=== PATIENT | female | born 1965 | race Two or more races ===

== ENCOUNTER 2016-10-10 19:29 | Inpatient (IN) | payer SELFPAY ==
[2016-10-10 20:18] LABS: Venous Bicarbonate HCO3 18.1 mmol/L (24-28)
[2016-10-10 20:19] LABS: Hematocrit 37 % (35-47); Hemoglobin 12.3 g/dl (12.0-16.0); Mean Corpuscular HGB Conc 33 g/dl (31-36); Mean Corpuscular Hemoglobin 31 pg (27-31); Mean Corpuscular Volume 92 fL (80-97); Mean Platelet Volume 9 um3 (7.4-10.4); Red Blood Count 4.01 10^6/ul (4.0-5.4); Red Cell Distribution Width 13 % (10.5-15)
[2016-10-10 20:20] LABS: Add Diff/Slide Review? Slide Review Added; Comments Flag Yes
--- NOTE | 2016-10-10 20:24 | ED ---
Medical Screening - HPI Summary HPI Summary: The patient is a 50 year old female presenting to ED for complaint of chronic cough, chest tightness, and epigastric pain. Initial 04/29 sharp epigastric pain non-radiating now /. Admits to fever 102, chills, night sweats, weight loss 16 lbs in 1 month, productive yellow sputum, nausea, decreased appetite, foul smelling urine, constipation, and mid back pain. Had BM today with bloody stool 2-3 times this week. Denies past medical or surgical history. Denies family history. SH: Rare alcohol. Former smoker. No IVDU. - History of Current Complaint Chief Complaint: EDDiabeticProb Stated Complaint: HIGH BLOOD SUGAR/CHEST CONGESTION Time Seen by Provider: 10/10/16 19:53 PMH/Surg Hx/FS Hx/Imm Hx Infectious Disease History: No Infectious Disease History: Denies: Traveled Outside the [place] in Last 30 Days - Social History Alcohol Use: Rare Substance Use Type: Reports: None Smoking Status (MU): Former Smoker Review of Systems Positive: Fever, Chills, Fatigue, Skin Diaphoresis Eyes: Negative ENT: Negative Positive: Chest Pain - tightness Positive: Cough, Other - no hemoptysis. Negative: Shortness Of Breath Positive: Abdominal Pain, Nausea, Other - constipation. Negative: Vomiting, Diarrhea Positive: other - foul smelling urine. Negative: burning, dysuria, hematuria Positive: Arthralgia - right back pain Skin: Negative Neurological: Negative Psychological: Normal All Other Systems Reviewed And Are Negative: Yes Physical Exam Triage Information Reviewed: Yes Vital Signs On Initial Exam: Initial Vitals Temp Pulse Resp BP Pulse Ox 98.4 F 96 18 144/69 100 10/10/16 19:33 10/10/16 19:33 10/10/16 19:33 10/10/16 19:33 10/10/16 19:33 Vital Signs Reviewed: Yes Appearance: Positive: Well-Appearing, No Pain Distress, Well-Nourished Skin: Positive: Warm, Skin Color Reflects Adequate Perfusion, Dry. Negative: Diaphoretic, Pale Neck: Positive: Supple, Nontender, No Lymphadenopathy Respiratory/Lung Sounds: Positive: Clear to Auscultation, Breath Sounds Present , Other - dry cough without bronchospasm. Negative: Decreased Breath Sounds, Rales, Rhonchi, Wheezes Cardiovascular: Positive: Normal, RRR, S1, S2. Negative: Murmur, Rub, Tachycardia, Leg Edema Left, Leg Edema Right Abdomen Description: Positive: No Organomegaly, Soft, CVA Tenderness (R), Other : - moderate tenderness RUQ/RLQ; no rebound or guarding JUSTIN: no fistula or fissure, anal sphincter tone intact; hemorrhoid at 5 o'clock position; no gross blood. Negative: Nontender, CVA Tenderness (L), Distended, Guarding, Hepatomegaly, Peritoneal Signs, Splenomegaly Bowel Sounds: Positive: Present Musculoskeletal: Positive: Normal - AROM all extremities, Pain @ - reported pain right mid thoracic without midline tenderness. Negative: Edema Left, Edema Right Neurological: Positive: Normal, Facial Symmetry, Speech Normal Psychiatric: Positive: Normal AVPU Assessment: Alert Diagnostics - Vital Signs Vital Signs Temp Pulse Resp BP Pulse Ox 10/10/16 19:33 98.4 F 96 18 144/69 100 - Laboratory Result Diagrams: 10/10/16 20:00 10/10/16 22:40 Lab Statement: Any lab studies that have been ordered have been reviewed, and results considered in the medical decision making process. Course/Dx - Course Assessment/Plan: Patient presented for cough, chest tightness and epigastric pain. Afebrile without septic criteria. Right sided tenderness without acute abdomen. Labs significant for Na 125, Cl 92, CO2 21, glucose 472 indicative of mild DKA. Treated with NS 2L bolus, Lantus 10 U, and Regular Insulin 7 U. CXR without acute cardiopulmonary disease. 2307: Repeat BMP with NA 131, K 3.3, Cl 99, Glucose 262, AG 10. 0002: CT abdomen/pelvis demonstrates right pyelonephritis and uterine fibroid. Ordered Rocephin. Admission accepted by hospitalist, Dr. Collado. - Diagnoses Provider Diagnoses: Pyelonephritis, Diabetes mellitus, new onset, DKA (diabetic ketoacidosis), Uterine fibroid, Chronic cough - Physician Notifications Discussed Care Of Patient With: Heaven: accepted admission at 0002. Discharge - Discharge Plan Condition: Stable Disposition: ADMITTED TO [facility] Referrals: No Primary Care Phys,NOPCP [Primary Care Provider] -
[2016-10-10 20:33] LABS: Albumin 3.4 g/dL (3.2-5.2); BUN/Creatinine Ratio 16.9 (8-20); Calcium 9.1 mg/dL (8.6-10.3); EGFR African American 138.8 (>60); EGFR Non-African American 107.9 (>60); Globulin 4.5 g/dL (2-4); Potassium 3.5 mmol/L (3.5-5.0); Total Bilirubin 0.4 mg/dL (0.2-1.0); Total Protein 7.9 g/dL (6.4-8.9)
[2016-10-10] MEDS ORDERED: Insulin GLARGINE(*) 1 UNITS UNIT SUBCUT ONE (20:35)
[2016-10-10] MEDS ORDERED: Insulin REGULAR(*) 1 UNITS UNIT IV PUSH ONE (20:35)
[2016-10-10] MEDS ORDERED: NS 0.9% 1000 ML* 2,000 ML IV ONE (20:36)
--- NOTE | 2016-10-10 21:09 | RAD ---
Indication: Cough. Single frontal view of the chest performed at 2020 hours was reviewed. No prior study is available for comparison. No mediastinal shift is noted. Heart is of normal size and configuration. Lung ann appear clear. IMPRESSION: NO ACTIVE CARDIOPULMONARY DISEASE IS NOTED.
[2016-10-10] MEDS ORDERED: Iohexol 300* (CONTRAST) 10 ML SDV IV ONE (22:51)
[2016-10-10 22:55] LABS: Urine Bacteria 1+ (Absent); Urine Bilirubin Negative (Negative); Urine Glucose 3+(>=500 mg/dL) (Negative); Urine Nitrite Negative (Negative)
[2016-10-10 23:02] LABS: BUN/Creatinine Ratio 15.9 (8-20); Calcium 8.3 mg/dL (8.6-10.3); EGFR African American 194.7 (>60); EGFR Non-African American 151.4 (>60); Potassium 3.3 mmol/L (3.5-5.0)
[2016-10-10] MEDS ORDERED: Potassium Chlor TAB* 20 MEQ TAB.ER PO ONE (23:06)
[2016-10-10] MEDS ORDERED: oxyCODONE/Acetamin 5/325 MG* TAB PO ONE (23:49)
[2016-10-10] MEDS ORDERED: Ketorolac INJ* 30 MG/ML 1 ML VIAL IV PUSH ONE (23:49)
[2016-10-11] MEDS ORDERED: cefTRIAXone(*) 1 GM in NS 0.9% 50 ML* 50 ML IVPB ONE (00:01)
[2016-10-11] MEDS ORDERED: Acetaminophen TAB* 325 MG PO PRN (00:32)
[2016-10-11] MEDS ORDERED: Albuterol 2.5 MG/3 ML NEB.SOL* (0.083%) INH PRN (00:32)
[2016-10-11] MEDS ORDERED: Ondansetron INJ* 2 MG/ML VIAL IV PRN (00:33)
[2016-10-11] MEDS ORDERED: Melatonin (NF) 3 MG TAB PO PRN (00:33)
--- NOTE | 2016-10-11 00:58 | HP ---
H&P (Free Text) History and Physical: PCP: none Date/Time of Evaluation: 10/11/2016 0000 CC: cough, malaise, R LBP HPI: Mrs Navarro is a 50YO female without known medical issues who has not seen a medical provider for 20 to 30 years. She presented today to the free clinic with complaint of 1 month of dry cough, fatigue, malaise, intermittent fevers up to 102F as recently as Friday, & R flank pain. There she was identified as being hyperglycemic and referred to [facility] ED for further evaluation. She denies SOB, chest pain, N/V, B/U/F of urine, change in bowels, palpitations, light-headedness, or other issues. Evaluation yields a CT abd/pel W positive for R pyelonephritis. Labs show a new diagnosis of DM2 w/ mild DKA. Vitals are stable. CXR is negative. PMedHx denies, has not seen a provider for >20 years Allergies No Known Allergies Allergy (Verified 10/10/16 19:33) Ambulatory Orders NK [No Home Medications Reported] 10/11/16 PSurgHx x2 SocHx: no tobacco, alcohol, or recreational drugs; , lives alone; formerly worked [employer] but has recently been too ill to continue; full code status FamHx: positive for DM2, HTN ROS: as above, otherwise reviewed and all were negative Constitutional: NAD, normally developed, well-nourished female vitals: Vital Signs Temp 38.0 C 10/11/16 00:52 Pulse 96 10/11/16 00:00 Resp 18 10/10/16 19:33 BP 132/63 10/10/16 23:30 Pulse Ox 98 10/11/16 00:00 Intake & Output 10/10/16 10/10/16 10/11/16 11:59 23:59 11:59 Weight 65.317 kg HEENM: atraumatic; sclera/conjunctiva: non-icteric/clear; hearing: clinically intact; oropharynx: clear, mucosa tacky Neck: soft tissue: non-tender; thyroid: normal Pulmonary: clear to auscultation bilaterally, good aeration, no accessory muscle use CV: RR/RR, normal S1S2, no carotid bruit, no jugular venous distention, 2+ B DP/ PT, no edema Abdominal: soft, non-distended, non-tender, no rebound/guarding/rigidity, normoactive bowel sounds, no hepatosplenomegaly or masses, no costovertebral angle tenderness Musculoskeletal: general: grossly intact; gait: stable Integumental: normal appearance and texture of exposed skin Psychiatric orientation: AA&O to PPS affect: fatigued mood: cooperative eye contact: good content: reliable responses: timely insight: fair Testing: Lab Results 10/10/16 10/10/16 10/10/16 Range/Units 20:00 20:00 20:00 WBC 10.0 (3.5-10.8) 10^3/ul RBC 4.01 (4.0-5.4) 10^6/ul Hgb 12.3 (12.0-16.0) g/dl Hct 37 (35-47) % MCV 92 (80-97) fL MCH 31 (27-31) pg MCHC 33 (31-36) g/dl RDW 13 (10.5-15) % Plt Count 253 (150-450) 10^3/ul MPV 9 (7.4-10.4) um3 Neut % (Auto) 80.5 (38-83) % Lymph % (Auto) 11.6 L (25-47) % [place] % (Auto) 7.1 (1-9) % Eos % (Auto) 0.3 (0-6) % Baso % (Auto) 0.5 (0-2) % Absolute Neuts (auto) 8.1 H (1.5-7.7) 10^3/ul Absolute Lymphs (auto) 1.2 (1.0-4.8) 10^3/ul Absolute Monos (auto) 0.7 (0-0.8) 10^3/ul Absolute Eos (auto) 0 (0-0.6) 10^3/ul Absolute Basos (auto) 0 (0-0.2) 10^3/ul Absolute Nucleated RBC 0 10^3/ul Nucleated RBC % 0 VBG pH (7.33-7.43) VBG pCO2 (41-51) mmHg VBG pO2 (35-45) mmHg VBG HCO3 (24-28) mmol/L VBG O2 Saturation (70-80) % VBG Base Excess (0-4) Sodium 125 L (133-145) mmol/L Potassium 3.5 (3.5-5.0) mmol/L Chloride 92 L (101-111) mmol/L Carbon Dioxide 21 L (22-32) mmol/L Anion Gap 12 H (2-11) mmol/L BUN 10 (6-24) mg/dL Creatinine 0.59 (0.51-0.95) mg/dL Est GFR ( Amer) 138.8 (>60) Est GFR (Non-Af Amer) 107.9 (>60) BUN/Creatinine Ratio 16.9 (8-20) Glucose 472 H (70-100) mg/dL Lactic Acid 1.0 (0.5-2.0) mmol/L Calcium 9.1 (8.6-10.3) mg/dL Total Bilirubin 0.40 (0.2-1.0) mg/dL AST 8 L (13-39) U/L ALT 14 (7-52) U/L Alkaline Phosphatase 109 H (34-104) U/L Total Protein 7.9 (6.4-8.9) g/dL Albumin 3.4 (3.2-5.2) g/dL Globulin 4.5 H (2-4) g/dL Albumin/Globulin Ratio 0.8 L (1-3) Urine Color Urine Appearance Urine pH (5-9) Ur Specific [place] (1.010-1.030) Urine Protein (Negative) Urine Ketones (Negative) Urine Blood (Negative) Urine Nitrate (Negative) Urine Bilirubin (Negative) Urine Urobilinogen (Negative) Ur Leukocyte Esterase (Negative) Urine WBC (Auto) (Absent) Urine RBC (Auto) (Absent) Ur Squamous Epith Cells (Absent) Urine Bacteria (Absent) Urine Glucose (Negative) 10/10/16 10/10/16 10/10/16 Range/Units 20:00 22:40 22:40 WBC (3.5-10.8) 10^3/ul RBC (4.0-5.4) 10^6/ul Hgb (12.0-16.0) g/dl Hct (35-47) % MCV (80-97) fL MCH (27-31) pg MCHC (31-36) g/dl RDW (10.5-15) % Plt Count (150-450) 10^3/ul MPV (7.4-10.4) um3 Neut % (Auto) (38-83) % Lymph % (Auto) (25-47) % [place] % (Auto) (1-9) % Eos % (Auto) (0-6) % Baso % (Auto) (0-2) % Absolute Neuts (auto) (1.5-7.7) 10^3/ul Absolute Lymphs (auto) (1.0-4.8) 10^3/ul Absolute Monos (auto) (0-0.8) 10^3/ul Absolute Eos (auto) (0-0.6) 10^3/ul Absolute Basos (auto) (0-0.2) 10^3/ul Absolute Nucleated RBC 10^3/ul Nucleated RBC % VBG pH 7.28 L (7.33-7.43) VBG pCO2 40 L (41-51) mmHg VBG pO2 30 L (35-45) mmHg VBG HCO3 18.1 L (24-28) mmol/L VBG O2 Saturation 57.7 L (70-80) % VBG Base Excess -7.5 L (0-4) Sodium 131 L (133-145) mmol/L Potassium 3.3 L (3.5-5.0) mmol/L Chloride 99 L (101-111) mmol/L Carbon Dioxide 22 (22-32) mmol/L Anion Gap 10 (2-11) mmol/L BUN 7 (6-24) mg/dL Creatinine 0.44 L (0.51-0.95) mg/dL Est GFR ( Amer) 194.7 (>60) Est GFR (Non-Af Amer) 151.4 (>60) BUN/Creatinine Ratio 15.9 (8-20) Glucose 262 H (70-100) mg/dL Lactic Acid (0.5-2.0) mmol/L Calcium 8.3 L (8.6-10.3) mg/dL Total Bilirubin (0.2-1.0) mg/dL AST (13-39) U/L ALT (7-52) U/L Alkaline Phosphatase (34-104) U/L Total Protein (6.4-8.9) g/dL Albumin (3.2-5.2) g/dL Globulin (2-4) g/dL Albumin/Globulin Ratio (1-3) Urine Color Straw Urine Appearance Clear Urine pH 6.0 (5-9) Ur Specific [place] 1.032 H (1.010-1.030) Urine Protein Negative (Negative) Urine Ketones 2+ H (Negative) Urine Blood 1+ H (Negative) Urine Nitrate Negative (Negative) Urine Bilirubin Negative (Negative) Urine Urobilinogen Negative (Negative) Ur Leukocyte Esterase Negative (Negative) Urine WBC (Auto) 1+(6-10/hpf) H (Absent) Urine RBC (Auto) Trace(0-2/hpf) (Absent) Ur Squamous Epith Cells Present H (Absent) Urine Bacteria 1+ H (Absent) Urine Glucose 3+(>=500 mg/dl) H (Negative) ECG: ordered, pending CXR, personally reviewed: IMPRESSION: NO ACTIVE CARDIOPULMONARY DISEASE IS NOTED. CT abd/pel W, personally reviewed: Impression: R pyelonephritis with a small subcapsular collection noted posteriorly on the right. Correlate for UTI/CVA tenderness. Impression: 50F medically naive presenting with new diagnosis of DM2, mild DKA, & pyelonephritis DIAGNOSIS & PLAN Primary new diagnosis of DM2 w/ mild DKA : IVFs : initiate SQ insulin, given 10units glargine & 7units regular in ED : trend labs : diabetic education consult : social work job titles consult pyelonephritis : IV ceftriaxone : blood & urine CXs : pain control Secondary social issues : no PCP : no insurance : social work job titles consult Admission Rational: observation for initiation of ABX and diabetic meds/ education DVTp: heparin SQ Code Status: full HCP: daughterAidee
[2016-10-11 01:01] LABS: Magnesium 1.9 mg/dL (1.9-2.7)
[2016-10-11] MEDS ORDERED: Benzonatate CAP* 100 MG PO PRN (03:02)
[2016-10-11] MEDS ORDERED: diPHENhydraMINE PO* 50 MG PO ONE (03:03)
[2016-10-11] MEDS: Omeprazole CAP* 20 MG PO SCH (06:15)
[2016-10-11] MEDS: oxyCODONE TAB* 5 MG TAB PO PRN ×3 (06:56→21:47)
[2016-10-11 07:00] LABS: Venous Bicarbonate HCO3 22.4 mmol/L (24-28)
[2016-10-11 07:02] LABS: Hematocrit 32 % (35-47); Hemoglobin 10.8 g/dl (12.0-16.0); Mean Corpuscular HGB Conc 34 g/dl (31-36); Mean Corpuscular Hemoglobin 31 pg (27-31); Mean Corpuscular Volume 91 fL (80-97); Mean Platelet Volume 9 um3 (7.4-10.4); Red Blood Count 3.49 10^6/ul (4.0-5.4); Red Cell Distribution Width 13 % (10.5-15); White Blood Count 9.2 10^3/ul (3.5-10.8)
[2016-10-11 07:15] LABS: BUN/Creatinine Ratio 13.5 (8-20); Calcium 8.1 mg/dL (8.6-10.3); EGFR African American 160.5 (>60); EGFR Non-African American 124.8 (>60); HDL Cholesterol 20.1 mg/dL; Potassium 4.3 mmol/L (3.5-5.0)
[2016-10-11] MEDS ORDERED: Insulin LISPRO* 1 UNITS UNIT SUBCUT SCH (07:30)
--- NOTE | 2016-10-11 07:38 | RAD ---
CLINICAL HISTORY: Right abdominal pain, bloody stool COMPARISON: None TECHNIQUE: Multiple contiguous axial CT scans were obtained of the abdomen and pelvis after the administration of intravenous contrast. Coronal and sagittal multiplanar reformations are submitted for review. Oral contrast was administered. Delayed images were obtained through the abdomen and pelvis. FINDINGS: LUNG BASES: The lung bases are clear. LIVER: The liver is normal in shape, size, contour, and attenuation. BILE DUCTS: There is no intrahepatic or extrahepatic biliary dilatation. GALLBLADDER: The gallbladder is normal, without pericholecystic inflammatory change. PANCREAS: The pancreas is normal, without mass or ductal dilatation. SPLEEN: The spleen is at the upper limits of normal in size UPPER GI TRACT: Evaluation of the gastrointestinal tract is limited by incomplete gastric distention. The upper GI tract is unremarkable. SMALL BOWEL AND MESENTERY: The small bowel is normal in contour, course, and caliber. There is no obstruction or dilatation. COLON: The colon is normal in contour, course, caliber. There is no pericolonic inflammatory change. The appendix is not well-visualized. ADRENALS: Normal bilaterally. KIDNEYS: The right kidney is enlarged with striated nephrogram. There is a small amount of perinephric fluid measuring 3.5 x 1.2 x 1.4 cm in size. This has peripheral enhancement BLADDER: The bladder is smooth in contour. PELVIC ORGANS: There is an anterior body fibroid measuring 1.4 cm. AORTA: The aorta is normal. IVC: Unremarkable LYMPH NODES: There is no lymphadenopathy by size criteria. ABDOMINAL WALL: There is no evidence for abdominal wall hernia. BONES AND SOFT TISSUES: Unremarkable OTHER: None IMPRESSION: 1. FINDINGS CONSISTENT WITH RIGHT-SIDED PYELONEPHRITIS. THERE IS A SMALL PERINEPHRIC FLUID COLLECTION. THE DIFFERENTIAL INCLUDES PERINEPHRIC ABSCESS. 2. FIBROID UTERUS.
[2016-10-11 07:43] LABS: Magnesium 1.7 mg/dL (1.9-2.7); Phosphorus 2.1 mg/dL (2.5-5.0)
[2016-10-11] MEDS ORDERED: Magnesium Sulfate 2 GM IV* 2 GM/50 ML BAG IVPB ONE (07:49)
[2016-10-11] MEDS ORDERED: KCL 10 MEQ/50 ML IVPREMIX* 10 MEQ/50 ML BAG IV SCH (08:00)
--- NOTE | 2016-10-11 08:07 | PN ---
Subjective Date of Service: 10/11/16 Interval History: HOSPITALIST PROGRESS NOTE Patient seen and examined at bedside. She feels a little better this morning, but still very weak. Right back pain is less intense, but dry cough is still bothering her. Feeling ill on and off since April, has lost 10lbs since. Family History: Unchanged from Admission Social History: Unchanged from Admission Past Medical History: Unchanged from Admission Objective Active Medications: Acetaminophen (Tylenol Tab*) 650 mg PO Q6H PRN PRN Reason: FEVER/PAIN Albuterol (Ventolin 2.5 Mg/3 Ml Neb.Christa*) 2.5 mg INH Q2H PRN PRN Reason: SOB/WHEEZING Benzonatate (Tessalon Cap*) 100 mg PO TID MAIK Docusate Sodium (Colace Cap*) 200 mg PO BID [facility] Heparin Sodium (Porcine) (Heparin Vial(*)) 5,000 units SUBCUT Q8HR [facility] Ceftriaxone Sodium 1,000 mg/ (Sodium Chloride) 50 mls @ 200 mls/hr IVPB Q24H [facility] Potassium Chloride (Potassium Chloride 10 Meq/50 Ml Ivpremix*) 10 meq in 50 mls @ 50 mls/hr IV Q1H [facility] Stop: 10/11/16 10:59 Magnesium Sulfate (Magnesium Sulfate 2 Gm Iv*) 2 gm in 50 mls @ 50 mls/hr IVPB ONCE ONE Stop: 10/11/16 08:48 Lactated Ringer's (Lactated Ringers 1000 Ml Bag*) 1,000 mls @ 100 mls/hr IV PER RATE [facility] Influenza Virus Vaccine (Fluarix *Quad* *) 0.5 ml IM .ONCE ONE Stop: 10/11/16 09:01 Insulin Glargine (Lantus(*)) 20 units SUBCUT 2100 [facility] Stop: 10/12/16 20:00 Insulin Human Lispro (Humalog*) 0 units SUBCUT ACHS [facility] PRN Reason: Protocol Insulin Human Lispro (Humalog*) 0 units SUBCUT AC MAIK PRN Reason: Protocol Melatonin (Melatonin (Nf)) 3 mg PO BEDTIME PRN; Protocol PRN Reason: Sleep Omeprazole (Prilosec Cap*) 20 mg PO DAILY@0600 [facility] Last Admin: 10/11/16 06:15 Dose: 20 mg Ondansetron HCl (Zofran Inj*) 4 mg IV Q6H PRN PRN Reason: NAUSEA Oxycodone HCl (Roxycodone Tab*) 5 mg PO Q4H PRN PRN Reason: PAIN Last Admin: 10/11/16 06:56 Dose: 5 mg Pneumococcal Polyvalent Vaccine (Pneumococcal Vac Polyvalent*) 0.5 ml IM .ONCE ONE Stop: 10/11/16 09:01 Potassium Chloride (Klor Con Er Tab*) 40 meq PO Q4H [facility]IK Stop: 10/11/16 12:01 Potassium Phos/Sodium Phos (Neutra Phos 250 Mg Yanick*) 250 mg PO BID [facility] Vital Signs 10/11/16 10/11/16 10/11/16 03:15 03:24 06:56 Temperature 98.2 F Pulse Rate 104 Respiratory 18 18 18 Rate Blood Pressure 131/65 (mmHg) O2 Sat by Pulse 100 Oximetry Oxygen Devices in Use Now: None Appearance: Middle aged lady sitting up in bed in NAD. Eyes: No Scleral Icterus Ears/Nose/Mouth/Throat: Mucous Membranes Moist Neck: Trachea Midline Respiratory: Symmetrical Chest Expansion and Respiratory Effort, - - BS+ bilaterally with bibasilar fine crackles Cardiovascular: RRR - Normal S1 and S2 Abdominal: NL Sounds; No Tenderness; No Distention, - - + right CVA tenderness Extremities: No Edema Neurological: Alert and Oriented x 3, NL Muscle Strength and Tone Lines/Tubes/Other Access: Clean, Dry and Intact Peripheral IV Nutrition: Taking PO's Result Diagrams: 10/11/16 06:44 10/11/16 06:44 Assess/Plan/Problems-Billing Assessment: Mrs. Navarro is a 50yo F with [facility], but limited contact with healthcare system , who presented to ED with c/o cough, fatigue, fever, found to have newly diagnosed diabetes and pyelonephritis. - Patient Problems (1) Sepsis Comment: - Patient meet sepsis criteria with tachycardia and fever. - Source is pyelonephritis. (2) Pyelonephritis Comment: - CT reviewed and d/w Urology (Dr. Figueredo) - he feels there's no abscess , only pyelo. Recommended adding gentamicin to ceftriaxone. - Continue IVF. - Follow cultures. (3) Diabetes Comment: - A1c is 12.1. - Increase Lantus and continue Lispro SS. - Diabetes consult requested. (4) Cough Comment: - Etiology unclear at this time. - CxR showed no active pulmonary disease. - Tessalon for symptomatic treatment. (5) DVT prophylaxis Comment: - SQ heparin. (6) Full code status Status and Disposition: Inpatient. SW consult requested to assist with health insurance application.
[2016-10-11] MEDS ORDERED: Influenza VAC *QUAD* 2016-17* 0.5 ML SYRINGE IM ONE (09:00)
[2016-10-11] MEDS ORDERED: Pneumococcal Vac Polyvalent* 0.5 ML VIAL IM ONE (09:00)
[2016-10-11] MEDS: Insulin LISPRO* 1 UNITS UNIT SUBCUT SCH ×7 (10:00→21:55)
[2016-10-11] MEDS: Benzonatate CAP* 100 MG PO SCH ×3 (10:04→21:46)
[2016-10-11] MEDS: Potassium Chlor TAB* 20 MEQ TAB.ER PO SCH ×2 (10:04→13:01)
[2016-10-11] MEDS: Docusate CAP* 100 MG PO SCH ×2 (10:05→21:47)
[2016-10-11] MEDS: Potassium & Sodium Phos 250MG* = 1 PACKET PO SCH ×2 (13:02→21:46)
[2016-10-11] MEDS: KCL premix 10MEQ/50 ML x 3 RUNS IV SCH ×3 (13:02→16:04)
--- NOTE | 2016-10-11 15:33 | CONSULT ---
Subjective Reason for Visit: Diabetes education - New diagnosis of type 2 diabetes Admission Date: 10/11/2016 History Of Present Illness: 50 year old woman presented to the ER after [facility] with complains of fatigue and fever. She was found to have pylonephritis and was in mild DKA with new diagnosis of type 2 diabetes. Her DKA was resolved with treatment and she is now being treated for pylonephritis and sepsis. She has not had regular health care for the last 20 years and relies of her kolby to heal any ilness she gets. She has a strong family history of type 2 diabetes. Patient History Past Family History: Mother and Father - type 2 diabetes Lives With: Family - 27 yr old daughter Employed/Unemployed: Unemployed Hx Tobacco Use: No Objective Allergies Allergy/AdvReac Type Severity Reaction Status Date / Time No Known Allergies Allergy Verified 10/10/16 19:33 Home Medications Medication Instructions Recorded Confirmed Type NK [No Home Medications Reported] 10/11/16 10/11/16 History Hospital Medications: Current Medications Acetaminophen (Tylenol Tab*) 650 mg PO Q6H PRN PRN Reason: FEVER/PAIN Albuterol (Ventolin 2.5 Mg/3 Ml Neb.Christa*) 2.5 mg INH Q2H PRN PRN Reason: SOB/WHEEZING Benzonatate (Tessalon Cap*) 100 mg PO TID [facility] Last Admin: 10/11/16 13:22 Dose: 100 mg Docusate Sodium (Colace Cap*) 200 mg PO BID [facility] Last Admin: 10/11/16 10:05 Dose: Not Given Heparin Sodium (Porcine) (Heparin Vial(*)) 5,000 units SUBCUT Q8HR [facility] Ceftriaxone Sodium 1,000 mg/ (Sodium Chloride) 50 mls @ 200 mls/hr IVPB Q24H [facility] Lactated Ringer's (Lactated Ringers 1000 Ml Bag*) 1,000 mls @ 100 mls/hr IV PER RATE [facility] Insulin Glargine (Lantus(*)) 20 units SUBCUT 2100 [facility] Stop: 10/12/16 20:00 Insulin Human Lispro (Humalog*) 0 units SUBCUT ACHS [facility] PRN Reason: Protocol Last Admin: 10/11/16 13:19 Dose: 5 unit Insulin Human Lispro (Humalog*) 0 units SUBCUT AC [facility] PRN Reason: Protocol Last Admin: 10/11/16 13:21 Dose: 5 unit Melatonin (Melatonin (Nf)) 3 mg PO BEDTIME PRN; Protocol PRN Reason: Sleep Omeprazole (Prilosec Cap*) 20 mg PO DAILY@0600 [facility] Last Admin: 10/11/16 06:15 Dose: 20 mg Ondansetron HCl (Zofran Inj*) 4 mg IV Q6H PRN PRN Reason: NAUSEA Oxycodone HCl (Roxycodone Tab*) 5 mg PO Q4H PRN PRN Reason: PAIN Last Admin: 10/11/16 11:06 Dose: 5 mg Potassium Phos/Sodium Phos (Neutra Phos 250 Mg Yanick*) 250 mg PO BID [facility] Last Admin: 10/11/16 13:02 Dose: 250 mg Lab Data: VBG pH 7.37 (7.33-7.43) 10/11/16 06:44 Sodium 130 mmol/L (133-145) L 10/11/16 06:44 Potassium 4.3 mmol/L (3.5-5.0) 10/11/16 06:44 BUN 7 mg/dL (6-24) 10/11/16 06:44 Creatinine 0.52 mg/dL (0.51-0.95) 10/11/16 06:44 Hemoglobin A1c 12.1 % (Less than 6.0) H 10/10/16 20:00 Calcium 8.1 mg/dL (8.6-10.3) L 10/11/16 06:44 Magnesium 1.7 mg/dL (1.9-2.7) L 10/11/16 06:44 AST 8 U/L (13-39) L 10/10/16 20:00 ALT 14 U/L (7-52) 10/10/16 20:00 Triglycerides 138 mg/dL 10/11/16 06:44 Cholesterol 138 mg/dL 10/11/16 06:44 LDL Cholesterol 90 mg/dL 10/11/16 06:44 Vital Signs: Vital Signs 10/11/16 10/11/16 10/11/16 08:26 08:56 11:06 Pulse Rate 93 Respiratory 16 16 16 Rate O2 Sat by Pulse 98 Oximetry 10/11/16 13:06 Pulse Rate Respiratory 16 Rate O2 Sat by Pulse Oximetry Height: 5 ft 4 in Weight: 149 lb 12.8 oz Body Mass Index (BMI): 25.7 Physical Exam General Appearance: Positive: Alert, Oriented x3 Dentition: Positive: Dentition in Good Repair Respiratory: Positive: Non-Labored Plan Of Care Patient's Next Step: Patient will be discharged home when medically stable. She will be getting help with insurance coverage and finding a PCP. She was given a glucometer with instructions for use. Supplies were faxed to [facility] for this. She was also given teaching with a Lantus pen. Given her elevated HgbA1C she would benefit from discharge on a basal insulin and Metformin. There may be some financial barriers to her getting some of her medications at this point and that may impact what she is sent home with. She is very motivated and has a good understanding of this. She is willing to follow up for additional Lifestyle education at [facility]. Referral To: [facility] For Further OutPT Diabetic Training, DSME Diagnosis: Type 2 Diabetes with hyperglycemia Education Prior Diabetic Education: No Education Provided: Daily Self Injection, Blood Glucose Monitoring Handouts Provided: CDC: Taking charge of your diabetes Recognition and treatment of hypoglycemia Rotation and care of injection sites Goals Goals: According to the [place] [employer], the following are your goals for Hemaglobin A1C, Blood Glucose. Hemaglobin A1C * <7.0% for most Blood Glucose * Fasting Blood Glucose: 80-130 mg/dl * 2 Hour Post Prandial Glucose <180 mg/dl A total of 45 minutes was spent on counseling and education directly with the patient
[2016-10-11] MEDS ORDERED: Gentamicin ADULT per pharmacy 1 NOTE MISC FOLLOW UP PRN (15:35)
[2016-10-11] MEDS: Cefepime(*) 1 GM in NS 0.9% 50 ML* 50 ML IVPB SCH (17:36)
[2016-10-11] MEDS: GuaiFENesin DM* 5 ML UDC PO PRN (17:40)
[2016-10-11] MEDS ORDERED: Insulin GLARGINE(*) 1 UNITS UNIT SUBCUT SCH ×2 (21:00)
[2016-10-11] MEDS ORDERED: Dextrose 50% Syringe 50 ML* 25 GM/50 ML SYRINGE IV PUSH PRN (21:22)
[2016-10-11] MEDS ORDERED: Insulin LISPRO* 1 UNITS UNIT SUBCUT ONE (21:22)
[2016-10-12] MEDS ORDERED: cefTRIAXone VIAL(*) 1,000 MG in NS 0.9% 50 ML* 50 ML IVPB SCH (00:01)
[2016-10-12] MEDS: GuaiFENesin DM* 5 ML UDC PO PRN ×4 (00:56→23:11)
[2016-10-12] MEDS: Cefepime(*) 1 GM in NS 0.9% 50 ML* 50 ML IVPB SCH ×2 (04:49→18:12)
[2016-10-12] MEDS: Omeprazole CAP* 20 MG PO SCH (04:50)
[2016-10-12] MEDS: Heparin VIAL(*) 5000 UNITS/ML VIAL (FIVE THOUSAND) SUBCUT SCH ×3 (04:54→22:46)
[2016-10-12] MEDS: Potassium & Sodium Phos 250MG* = 1 PACKET PO SCH ×2 (09:08→22:20)
[2016-10-12] MEDS: Docusate CAP* 100 MG PO SCH ×2 (09:09→22:20)
[2016-10-12] MEDS: Benzonatate CAP* 100 MG PO SCH ×3 (09:09→22:19)
[2016-10-12] MEDS: Insulin LISPRO* 1 UNITS UNIT SUBCUT SCH ×7 (09:09→22:45)
[2016-10-12] MEDS: metFORMIN* 500 MG TAB PO SCH ×2 (09:10→18:12)
--- NOTE | 2016-10-12 11:38 | PN ---
Subjective Date of Service: 10/12/16 Interval History: HOSPITALIST PROGRESS NOTE Patient seen and examined at bedside. Right back pain is much improved, but dry cough continues to bother her. No dyspnea. Had bagel and oatmeal for breakfast today. Family History: Unchanged from Admission Social History: Unchanged from Admission Past Medical History: Unchanged from Admission Objective Active Medications: Acetaminophen (Tylenol Tab*) 650 mg PO Q6H PRN PRN Reason: FEVER/PAIN Albuterol (Ventolin 2.5 Mg/3 Ml Neb.Christa*) 2.5 mg INH Q2H PRN PRN Reason: SOB/WHEEZING Benzonatate (Tessalon Cap*) 200 mg PO TID [facility] Last Admin: 10/12/16 09:09 Dose: 200 mg Dextrose (D50w Syringe 50 Ml*) 12.5 gm IV PUSH .FOR FS < 60 - SS PRN PRN Reason: FS < 60 Docusate Sodium (Colace Cap*) 200 mg PO BID [facility] Last Admin: 10/12/16 09:09 Dose: 200 mg Guaifenesin/Dextromethorphan (Robitussin Dm*) 10 ml PO Q6H PRN PRN Reason: COUGH Last Admin: 10/12/16 09:08 Dose: 10 ml Heparin Sodium (Porcine) (Heparin Vial(*)) 5,000 units SUBCUT Q8HR [facility] Last Admin: 10/12/16 04:54 Dose: 5,000 units Cefepime HCl 1 gm/ Sodium (Chloride) 50 mls @ 100 mls/hr IVPB Q12H [facility] Last Admin: 10/12/16 04:49 Dose: 100 mls/hr Insulin Glargine (Lantus(*)) 30 units SUBCUT 2100 [facility] Insulin Human Lispro (Humalog*) 0 units SUBCUT AC [facility] PRN Reason: Protocol Last Admin: 10/12/16 09:09 Dose: 7 unit Insulin Human Lispro (Humalog*) 0 units SUBCUT ACHS [facility] PRN Reason: Protocol Last Admin: 10/12/16 09:10 Dose: 8 units Melatonin (Melatonin (Nf)) 3 mg PO BEDTIME PRN; Protocol PRN Reason: Sleep Metformin HCl (Glucophage*) 500 mg PO 0800,1700 [facility] Last Admin: 10/12/16 09:10 Dose: 500 mg Omeprazole (Prilosec Cap*) 20 mg PO DAILY@0600 [facility] Last Admin: 10/12/16 04:50 Dose: 20 mg Ondansetron HCl (Zofran Inj*) 4 mg IV Q6H PRN PRN Reason: NAUSEA Oxycodone HCl (Roxycodone Tab*) 5 mg PO Q4H PRN PRN Reason: PAIN Last Admin: 10/11/16 21:47 Dose: 5 mg Potassium Phos/Sodium Phos (Neutra Phos 250 Mg Yanick*) 250 mg PO BID [facility] Last Admin: 10/12/16 09:08 Dose: 250 mg Vital Signs 10/11/16 10/11/16 10/12/16 21:47 23:34 07:41 Temperature 99.1 F 99.3 F Pulse Rate 91 105 Respiratory 20 20 Rate Blood Pressure 129/61 134/69 (mmHg) O2 Sat by Pulse 92 97 Oximetry Oxygen Devices in Use Now: None Appearance: Pleasant middle aged lady sitting up in bed in [facility]. Eyes: No Scleral Icterus Ears/Nose/Mouth/Throat: Mucous Membranes Moist Neck: Trachea Midline Respiratory: Symmetrical Chest Expansion and Respiratory Effort, Clear to Auscultation Cardiovascular: NL Sounds; No Murmurs; No JVD, RRR Abdominal: NL Sounds; No Tenderness; No Distention Extremities: No Edema Neurological: Alert and Oriented x 3, NL Muscle Strength and Tone Lines/Tubes/Other Access: Clean, Dry and Intact Peripheral IV Nutrition: Taking PO's Result Diagrams: 10/11/16 06:44 10/11/16 06:44 Assess/Plan/Problems-Billing Assessment: Mrs. Navarro is a 50yo F with [facility], but limited contact with healthcare system , who presented to ED with c/o cough, fatigue, fever, found to have newly diagnosed diabetes and pyelonephritis. - Patient Problems (1) Sepsis Comment: - Patient meet sepsis criteria with tachycardia and fever. - Source is pyelonephritis. (2) Pyelonephritis Comment: - D/c IVF. - D/w ID - recommended Cefepime. - Urine culture growing E. coli - follow sensitivities. (3) Diabetes Comment: - A1c is 12.1. - Diabetes consult appreciated. - Continue Lantus, Lispro, and add Metformin. - Patient educated about need to decrease carb intake. (4) Cough Comment: - Etiology unclear at this time. - CxR showed no active pulmonary disease. - Tessalon for symptomatic treatment. - Check CT chest. (5) DVT prophylaxis Comment: - SQ heparin. (6) Full code status Status and Disposition: Inpatient.
--- NOTE | 2016-10-12 15:03 | RAD ---
INDICATION: Chronic cough COMPARISON: None TECHNIQUE: Axial source images of the chest were acquired without intravenous contrast from just above the lung apices to the base of the diaphragm. Coronal and sagittal reconstructed images were acquired. FINDINGS: There are hypoventilatory changes and pleural base densities at the dependent lower lungs. Elsewhere the lungs are adequately aerated without suspicious nodules or lobar consolidation. There are no pulmonary parenchymal masses. There is a very small right lung base pleural effusion. The heart is normal in size. There is no evidence of pericardial effusion. There is no evidence of aortic aneurysm or dissection. There is no readily apparent mediastinal, hilar, or axillary lymphadenopathy. Mild degenerative changes of the thoracic spine include loss of intervertebral disc height. The spleen is mildly enlarged measuring 14.2 cm in greatest axial dimension. IMPRESSION: 1. Mild bibasilar hypoventilatory change could represent atelectasis or other hypoventilatory change. There is also a very small right-sided pleural effusion. 2. Mild splenomegaly.
[2016-10-12] MEDS ORDERED: Insulin GLARGINE(*) 1 UNITS UNIT SUBCUT SCH (21:00)
[2016-10-13] MEDS: Cefepime(*) 1 GM in NS 0.9% 50 ML* 50 ML IVPB SCH ×2 (04:37→18:05)
[2016-10-13] MEDS: GuaiFENesin DM* 5 ML UDC PO PRN (05:33)
[2016-10-13] MEDS: Omeprazole CAP* 20 MG PO SCH (05:33)
[2016-10-13] MEDS: Heparin VIAL(*) 5000 UNITS/ML VIAL (FIVE THOUSAND) SUBCUT SCH ×3 (05:38→21:50)
[2016-10-13] MEDS: Albuterol HFA INHALER* 8 gm MDI INH SCH ×3 (09:16→19:38)
[2016-10-13] MEDS: Docusate CAP* 100 MG PO SCH ×2 (09:32→20:55)
[2016-10-13] MEDS: Benzonatate CAP* 100 MG PO SCH ×3 (09:32→20:55)
[2016-10-13] MEDS: Potassium & Sodium Phos 250MG* = 1 PACKET PO SCH ×2 (09:33→20:55)
[2016-10-13] MEDS: metFORMIN* 500 MG TAB PO SCH ×2 (09:33→18:05)
[2016-10-13] MEDS: Insulin LISPRO* 1 UNITS UNIT SUBCUT SCH ×7 (09:33→20:57)
[2016-10-13] MEDS: Azithromycin TAB* 250 MG PO SCH (09:33)
--- NOTE | 2016-10-13 10:49 | PN ---
Subjective Date of Service: 10/13/16 Interval History: HOSPITALIST PROGRESS NOTE Patient seen and examined at bedside. Right back pain is resolved. Dry cough continues to bother her. Family History: Unchanged from Admission Social History: Unchanged from Admission Past Medical History: Unchanged from Admission Objective Active Medications: Acetaminophen (Tylenol Tab*) 650 mg PO Q6H PRN PRN Reason: FEVER/PAIN Albuterol (Ventolin 2.5 Mg/3 Ml Neb.Christa*) 2.5 mg INH Q2H PRN PRN Reason: SOB/WHEEZING Albuterol (Ventolin Hfa Inhaler*) 2 puff INH Q6H [facility] Last Admin: 10/13/16 09:16 Dose: 2 puff Azithromycin (Zithromax Tab*) 500 mg PO DAILY [facility] Last Admin: 10/13/16 09:33 Dose: 500 mg Benzonatate (Tessalon Cap*) 200 mg PO TID [facility] Last Admin: 10/13/16 09:32 Dose: 200 mg Dextrose (D50w Syringe 50 Ml*) 12.5 gm IV PUSH .FOR FS < 60 - SS PRN PRN Reason: FS < 60 Docusate Sodium (Colace Cap*) 200 mg PO BID [facility] Last Admin: 10/13/16 09:32 Dose: 200 mg Guaifenesin/Dextromethorphan (Robitussin Dm*) 10 ml PO Q6H PRN PRN Reason: COUGH Last Admin: 10/13/16 05:33 Dose: 10 ml Heparin Sodium (Porcine) (Heparin Vial(*)) 5,000 units SUBCUT Q8HR [facility] Last Admin: 10/13/16 05:38 Dose: 5,000 units Cefepime HCl 1 gm/ Sodium (Chloride) 50 mls @ 100 mls/hr IVPB Q12H [facility] Last Admin: 10/13/16 04:37 Dose: 100 mls/hr Insulin Glargine (Lantus(*)) 40 units SUBCUT 2100 [facility] Insulin Human Lispro (Humalog*) 0 units SUBCUT AC [facility] PRN Reason: Protocol Last Admin: 10/13/16 09:33 Dose: 2 unit Insulin Human Lispro (Humalog*) 0 units SUBCUT ACHS [facility] PRN Reason: Protocol Last Admin: 10/13/16 09:34 Dose: 6 units Melatonin (Melatonin (Nf)) 3 mg PO BEDTIME PRN; Protocol PRN Reason: Sleep Last Admin: 10/12/16 23:11 Dose: 3 mg Metformin HCl (Glucophage*) 500 mg PO 0800,1700 [facility] Last Admin: 10/13/16 09:33 Dose: 500 mg Omeprazole (Prilosec Cap*) 20 mg PO DAILY@0600 [facility] Last Admin: 10/13/16 05:33 Dose: 20 mg Ondansetron HCl (Zofran Inj*) 4 mg IV Q6H PRN PRN Reason: NAUSEA Oxycodone HCl (Roxycodone Tab*) 5 mg PO Q4H PRN PRN Reason: PAIN Last Admin: 10/11/16 21:47 Dose: 5 mg Potassium Phos/Sodium Phos (Neutra Phos 250 Mg Yanick*) 250 mg PO BID [facility] Last Admin: 10/13/16 09:33 Dose: 250 mg Vital Signs 10/12/16 10/13/16 10/13/16 23:07 07:36 07:38 Temperature 98.2 F Pulse Rate 89 80 Respiratory 16 18 16 Rate Blood Pressure 130/71 112/60 (mmHg) O2 Sat by Pulse 98 99 Oximetry Oxygen Devices in Use Now: None Appearance: Pleasant middle aged lady sitting up in bed in [facility]. Eyes: No Scleral Icterus Ears/Nose/Mouth/Throat: Mucous Membranes Moist Neck: Trachea Midline Respiratory: Symmetrical Chest Expansion and Respiratory Effort, - - BS+ bilaterally with scattered rhonchi Cardiovascular: RRR - Normal S1 and S2 Abdominal: NL Sounds; No Tenderness; No Distention Extremities: No Edema Neurological: Alert and Oriented x 3, NL Muscle Strength and Tone Lines/Tubes/Other Access: Clean, Dry and Intact Peripheral IV Nutrition: Taking PO's Result Diagrams: 10/11/16 06:44 10/11/16 06:44 Assess/Plan/Problems-Billing Assessment: Mrs. Navarro is a 50yo F with [facility], but limited contact with healthcare system , who presented to ED with c/o cough, fatigue, fever, found to have newly diagnosed diabetes and pyelonephritis. - Patient Problems (1) Sepsis Comment: - Patient meet sepsis criteria with tachycardia and fever. - Source is pyelonephritis. (2) Pyelonephritis Comment: - Continue Cefepime. - Urine culture growing E. coli - follow sensitivities. (3) Bronchitis Comment: - CT chest was negative for infiltrates. - Suspect cough etiology is bronchitis. - Add azithromycin and albuterol. (4) Diabetes Comment: - A1c is 12.1. - Diabetes consult appreciated. - Continue Lantus, Lispro, and add Metformin. - Patient educated about need to decrease carb intake. (5) DVT prophylaxis Comment: - SQ heparin. (6) Full code status Status and Disposition: Inpatient.
[2016-10-13] MEDS ORDERED: Insulin GLARGINE(*) 1 UNITS UNIT SUBCUT SCH (21:00)
[2016-10-14] MEDS: GuaiFENesin DM* 5 ML UDC PO PRN ×2 (00:47→08:35)
[2016-10-14] MEDS: Albuterol HFA INHALER* 8 gm MDI INH SCH ×2 (02:38→08:25)
[2016-10-14] MEDS: Cefepime(*) 1 GM in NS 0.9% 50 ML* 50 ML IVPB SCH (05:07)
[2016-10-14] MEDS: Heparin VIAL(*) 5000 UNITS/ML VIAL (FIVE THOUSAND) SUBCUT SCH ×2 (05:31→13:39)
[2016-10-14] MEDS: Omeprazole CAP* 20 MG PO SCH (05:31)
[2016-10-14 07:37] VITALS: BP 119/61
[2016-10-14] MEDS: metFORMIN* 500 MG TAB PO SCH (08:37)
[2016-10-14] MEDS: Azithromycin TAB* 250 MG PO SCH (08:37)
[2016-10-14] MEDS: Benzonatate CAP* 100 MG PO SCH ×2 (08:38→12:46)
[2016-10-14] MEDS: Potassium & Sodium Phos 250MG* = 1 PACKET PO SCH (08:47)
[2016-10-14] MEDS: Insulin LISPRO* 1 UNITS UNIT SUBCUT SCH ×4 (10:04→12:45)
[2016-10-14] MEDS: Docusate CAP* 100 MG PO SCH (10:07)
--- NOTE | 2016-10-15 10:59 | DS ---
DISCHARGE SUMMARY: DATE OF ADMISSION: 10/11/16 DATE OF DISCHARGE: 10/14/16 DISCHARGE DIAGNOSES: 1. Sepsis, present on admission. 2. E. coli pyelonephritis. 3. Bronchitis. 4. Type 2 diabetes. 5. Hypokalemia. MEDICATION LIST: 1. Acetaminophen 650 mg p.o. q.6 hours p.r.n. pain or fever. 2. Albuterol HFA 2 puffs inhaled q.6 hours p.r.n. shortness of breath and wheezing. 3. Azithromycin 250 mg p.o. daily for 5 more days. 4. Tessalon 100 mg p.o. t.i.d. as needed for cough. 5. Cefuroxime 250 mg p.o. b.i.d. for 10 more days. 6. Guaifenesin 10 mL p.o. q. 6 hours p.r.n. cough. 7. Lantus 50 units subcutaneously daily. 8. Metformin 500 mg p.o. b.i.d. HOSPITAL COURSE: Mrs. Navarro is a 50-year-old lady with a past medical history stated above, that presented to the emergency room with complaints of dry cough, fatigue, malaise, fevers, right flank pain, and she was found to be hyperglycemic in the emergency room. For more details about her presentation, I refer you to her history and physical. The patient's glucose was 472 and her urinalysis was also abnormal. Chest x-ray showed no active cardiopulmonary disease and a CT of the abdomen and pelvis showed findings consistent with right-sided pyelonephritis with small perinephric fluid collection. This was discussed with Urology and was felt not to be a perinephric abscess. The patient was started on cefepime empirically and her urine culture later on grew E. coli that was multisensitive. The patient had complaints of productive cough and mild shortness of breath for more than a month. Her chest x-ray was negative, but a CT of the chest without contrast was also performed and it showed mild bibasilar hyperventilatory change that could represent atelectasis and very small right-sided pleural effusion with mild splenomegaly. On physical examination, the patient had rhonchi and the impression was that her respiratory symptoms were likely associated with bronchitis. She responded well to azithromycin and bronchodilators. The patient has had very limited contact with the healthcare system, especially now because she does not have insurance, so she would go to the free clinic as needed. She complains of night sweats and she has lost 10 pounds. At this point , I believe this is secondary to her uncontrolled diabetes, bronchitis, and pyelonephritis, but if the night sweats persist, she may need further workup. Of note is that her CT of the chest showed an incidental finding of mild splenomegaly, but I did not find any other lymphadenopathies on physical examination. For her diabetes, the patient's hemoglobin A1c was found to be elevated at 12.1. The plan is for control with Lantus insulin and metformin for now. She was seen by Columba Raman NP, and received diabetes education. The patient was seen by social worker psychiatric to assist her with application for Medicaid. The patient is medically stable for discharge today, to follow up with Dr. Elizalde on 10/16/16. PHYSICAL EXAMINATION: Vital Signs: Temperature 97.9, heart rate is 82, respiratory rate 16, oxygen saturation is 98% on room air, blood pressure is 119 /61. General: The patient is a pleasant, middle-aged lady, sitting up in bed, in no acute distress. CVS: Normal S1, S2. Regular rate and rhythm. Chest: Breath sounds present bilaterally. No added sounds. Extremities: No edema. Neuro: She is alert, awake, and oriented x3. Able to move all 4 extremities. DIET: Consistent carb diet. ACTIVITY: As tolerated. DISPOSITION: Home. STATUS WHILE IN THE HOSPITAL: Inpatient. Please keep in mind, this is a summarized version of this patient's hospital stay. If you need more information , please feel free to call me at [phone] or please obtain the full medical records. Approximately 45 minutes was spent to complete this discharge. CC: Dr. Elizalde; Columba Raman NP* [id number]/[facility] #: [id number] [facility] HOSPITALSJuliocesar
== END 2016-10-14 14:00 | disposition home or self-care (01) | DRG 871 ==
LOC: ED 19:29 → MED 10-11 00:01 → OBSVTOIN 10-11 15:40
PROVIDERS: ADMIT Hospitalist; ATTEND Internal Medicine
DX: A41.9 Sepsis, unspecified organism (principal); E13.10 Other specified diabetes mellitus with ketoacidosis without coma; J90 Pleural effusion, not elsewhere classified; J98.11 Atelectasis; N12 Tubulo-interstitial nephritis, not specified as acute or chronic; E87.6 Hypokalemia; B96.20 Unspecified Escherichia coli [E. coli] as the cause of diseases classified elsewhere; R16.1 Splenomegaly, not elsewhere classified; J40 Bronchitis, not specified as acute or chronic; Z87.891 Personal history of nicotine dependence; Z83.3 Family history of diabetes mellitus; Z82.49 Family history of ischemic heart disease and other diseases of the circulatory system; Z79.4 Long term (current) use of insulin
CPT/HCPCS: 36415; 71010; 71250; 74177; 80048; 80053; 80061; 81003; 81015; 82272; 82803; 82947; 83036; 83605; 83735; 84100; 85025; 87040; 87077; 87086; 87186; 90686; 90732; 93005; 94640; 94760; 99253; A9270-GY; G0378; J0692; J0696; J1644; J1885; J3480; Q9967

== ENCOUNTER 2019-05-11 09:37 | Emergency (ER) | payer SELFPAY ==
--- NOTE | 2019-05-11 10:24 | ED ---
Throat Pain/Nasal Congestion - HPI Summary HPI Summary: Pt is a 53 y/o F presenting to the ED with a chief complaint of dental pain initially onset last , 05/06/19. She states she woke up and the L side of her face was swollen and painful all around her eye and upper cheek. She rubbed her upper L gumline with alcohol and noticed there was some blood on the Q-tip. She reports the area feeling warm, losing some vision in the L eye, general photophobia, some nasal discharge, slight nausea this morning, and feeling as though her jaw wants to lock. She denies vomiting, diarrhea, and rash. - History of Current Complaint Chief Complaint: EDDentalPain Time Seen by Provider: 05/11/19 10:01 Hx Obtained From: Patient Onset/Duration: Sudden Onset, Lasting Days, Still Present Severity: Moderate Associated Signs And Symptoms: Positive: Negative - Allergies/Home Medications Allergies/Adverse Reactions: Allergies Allergy/AdvReac Type Severity Reaction Status Date / Time No Known Allergies Allergy Verified 10/10/16 19:33 PMH/Surg Hx/FS Hx/Imm Hx Previously Healthy: Yes Endocrine/Hematology History: Denies: Hx Diabetes Cardiovascular History: Denies: Hx Hypertension History: Denies: Hx Dialysis, Hx Renal Disease Sensory History: Denies: Hx Cataracts, Hx Contacts or Glasses, Hx Hearing Aid Opthamlomology History: Denies: Hx Cataracts, Hx Contacts or Glasses - Immunization History Immunizations Up to Date: Yes Infectious Disease History: No Infectious Disease History: Denies: Traveled Outside the [place] in Last 30 Days - Family History Known Family History: Negative: Diabetes - Social History Alcohol Use: None Hx Substance Use: No Substance Use Type: Reports: None Hx Tobacco Use: No Smoking Status (MU): Never Smoked Tobacco Review of Systems Positive: Photophobia, Drainage - increased water, tearing, Erythema, Other - vision is darkened Positive: Dental Pain, Nasal Discharge Positive: Nausea. Negative: Vomiting, Diarrhea Positive: Edema Negative: Rash All Other Systems Reviewed And Are Negative: Yes Physical Exam - Summary Physical Exam Summary: Constitutional: Well-developed, Well-nourished, Alert. (-) Distressed Skin: Warm, Dry HENT: Normocephalic; Atraumatic. Tenderness in tooth 14 with small area of edema and tenderness in the gumline above that tooth. Eyes: L conjunctival injection Neck: Musculoskeletal ROM normal neck. (-) JVD, (-) Stridor, (-) Tracheal deviation Cardio: Rhythm regular, rate normal, Heart sounds normal; Intact distal pulses. Radial pulses are 2+ and symmetric. (-) Murmur Pulmonary/Chest wall: Effort normal. (-) Respiratory distress, (-) Wheezes, (-) Rales Abd: Soft. (-) Tenderness, (-) Distension, (-) Guarding, (-) Rebound Musculoskeletal: (-) Edema Lymph: (-) Cervical adenopathy Neuro: Alert, Oriented x3, Strength normal, Cranial nerves II-XII are grossly intact. (-) Dysmetria, (-) Nystagmus, (-) Ataxia by finger to nose testing, (-) Sensory deficit. Psych: Mood and affect Normal Triage Information Reviewed: Yes Vital Signs On Initial Exam: Initial Vitals Temp Pulse Resp BP Pulse Ox 98.5 F 86 15 142/80 99 05/11/19 09:50 05/11/19 09:50 05/11/19 09:50 05/11/19 09:50 05/11/19 09:50 Vital Signs Reviewed: Yes Procedures - Sedation Patient Received Moderate/Deep Sedation with Procedure: No Diagnostics - Vital Signs Vital Signs Temp Pulse Resp BP Pulse Ox 05/11/19 09:50 98.5 F 86 15 142/80 99 - Laboratory Lab Statement: Any lab studies that have been ordered have been reviewed, and results considered in the medical decision making process. EENT Course/Dx - Course Course Of Treatment: Patient is here with waxing and waning symptoms of headache behind her eye, dental pain, left eye clear discharge. Patient is feeling better today. Patient does have conjunctival injection and an area superior to tooth #15 that is concerning for infection. Patient has no distinct temporal artery tenderness. Patient's symptoms likely represent a migraine variant as her headache comes and goes but she does have a history dental infection with an area of swelling so she was started on clindamycin. Patient was encouraged to return if she has worsening symptoms. Patient did not need further workup today as she is overall feeling better. - Diagnoses Provider Diagnoses: Pain, dental, Headache Discharge ED - Sign-Out/Discharge Documenting (check all that apply): Patient Departure - Discharge Plan Condition: Stable Disposition: HOME Prescriptions: Clindamycin Cap(NF) [Clindamycin Cap 300 mg Cap(NF)] 300 mg PO Q6H 7 Days #28 cap Referrals: [facility] [Outside] [facility] [Outside] Additional Instructions: Take your antibiotics as prescribed. Continue taking Ibuprofen or Tylenol as needed. Follow up with [facility] to find a new primary care provider. Come back to the emergency department if you are feeling worse, if you lose your vision, or if your face becomes swollen again. - Billing Disposition and Condition Condition: STABLE Disposition: Home - Attestation Statements Document Initiated by Sebastianibe: Yes Documenting Scribe: Miranda Garza Provider For Whom Gloria is Documenting (Include Credential): Dion Ashby MD. Scribe Attestation: Miranda Dowling, ricked for Dion Ashby MD. on 05/11/19 at 1103. Scribe Documentation Reviewed: Yes Provider Attestation: The documentation as recorded by the Miranda santiago accurately reflects the service I personally performed and the decisions made by Dion redd MD. Status of Scribe Document: Viewed
[2019-05-11 10:29] VITALS: BP 145/85
== END 2019-05-11 10:31 | disposition home or self-care (01) ==
LOC: ED 09:37
DX: K08.89 Other specified disorders of teeth and supporting structures (principal); R51 Headache; H53.149 Visual discomfort, unspecified; R11.0 Nausea
CPT/HCPCS: 99282

== ENCOUNTER 2019-05-25 15:03 | Emergency (ER) | payer SELFPAY ==
--- NOTE | 2019-05-25 15:19 | ED ---
Throat Pain/Nasal Congestion - HPI Summary HPI Summary: Patient is a 53 y/o F presenting to the ED for a chief complaint of daily epistaxis from the left naris for the last 2 weeks. Patient is present with her daughter. The epistaxis stopped one hour ago. Per patients daughter, the blood smells like a animal. Patient denies cough or fever. Patient was seen at [facility] 2 weeks ago for left-sided dental pain, left-sided facial pain, and left- sided facial swelling that has since resolved. Patient was discharged from [facility] with a prescription for antibiotics which she did not take. Patient took Amoxicillin instead of the prescribed antibiotics which she completed on . Patient used nasal saline, Vicks vapor rub, and Flonase once daily without relief. Patient admits sinus infections in the past. Patient denies a PMHx of HTN or DM. - History of Current Complaint Chief Complaint: EDEpistaxis Time Seen by Provider: 05/25/19 15:11 Hx Obtained From: Patient, Family/Service Car Driver - Daughter Onset/Duration: Sudden Onset, Lasting Weeks - 2 weeks, Still Present Severity: Moderate Associated Signs And Symptoms: Positive: Negative Cough: None - Allergies/Home Medications Allergies/Adverse Reactions: Allergies Allergy/AdvReac Type Severity Reaction Status Date / Time No Known Allergies Allergy Verified 10/10/16 19:33 PMH/Surg Hx/FS Hx/Imm Hx Previously Healthy: Yes Endocrine/Hematology History: Denies: Hx Diabetes Cardiovascular History: Denies: Hx Hypercholesterolemia, Hx Hypertension History: Denies: Hx Dialysis, Hx Renal Disease Sensory History: Denies: Hx Cataracts, Hx Contacts or Glasses, Hx Legally Blind, Hx Deafness, Hx Hearing Aid Opthamlomology History: Denies: Hx Cataracts, Hx Contacts or Glasses, Hx Legally Blind EENT History: Reports: Other - Sinus infection Denies: Hx Deafness - Surgical History Surgical History: None Surgery Procedure, Year, and Place: None Infectious Disease History: No Infectious Disease History: Denies: Traveled Outside the [place] in Last 30 Days - Family History Known Family History: Negative: Diabetes - Social History Occupation: Unemployed Lives: With Family Alcohol Use: None Hx Substance Use: No Substance Use Type: Reports: None Hx Tobacco Use: No Smoking Status (MU): Never Smoked Tobacco Review of Systems Negative: Fever Positive: Epistaxis - Left naris, Other - Positive foul odor described as "like a animal" from epistaxis. Negative: Dental Pain - Left-sided, resolved Negative: Cough Negative: Myalgia - Left-sided facial, Edema - Left-sided facial swelling, resolved All Other Systems Reviewed And Are Negative: Yes Physical Exam - Summary Physical Exam Summary: Constitutional: Well-developed, Well-nourished, Alert. (-) Distressed Skin: Warm, Dry HENT: Normocephalic; Atraumatic. Purulent drainage from the left naris/possible white FB noted. Eyes: Conjunctiva normal Neck: Musculoskeletal ROM normal neck. (-) JVD, (-) Stridor, (-) Nuchal rigidity Cardio: Rhythm regular, rate normal, Heart sounds normal; Intact distal pulses; Radial pulses are 2+ and symmetric. (-) Murmur Pulmonary/Chest wall: Effort normal. (-) Respiratory distress, (-) Wheezes, (-) Rales Abd: Soft, (-) tenderness, (-) Distension, (-) Guarding, (-) Rebound Musculoskeletal: (-) Edema Lymph: (-) Cervical adenopathy Neuro: Alert, Oriented x3 Psych: Mood and affect Normal Triage Information Reviewed: Yes Vital Signs On Initial Exam: Initial Vitals Temp Pulse Resp BP Pulse Ox 97.6 F 90 18 152/94 100 05/25/19 15:05 05/25/19 15:05 05/25/19 15:05 05/25/19 15:05 05/25/19 15:05 Vital Signs Reviewed: Yes Procedures - Sedation Patient Received Moderate/Deep Sedation with Procedure: No Diagnostics - Vital Signs Vital Signs Temp Pulse Resp BP Pulse Ox 05/25/19 15:05 97.6 F 90 18 152/94 100 - Laboratory Lab Statement: Any lab studies that have been ordered have been reviewed, and results considered in the medical decision making process. - CT Sinuses CT CT Interpretation Completed By: Radiologist Summary of CT Findings: Sinuses CT IMPRESSION: #. Negative for sinusitis. #. Retained secretions or blood products with gas bubbles in the inferior LEFT nasal cavity insinuating between the inferior nasal turbinate and the septum. Reviewed by ED physician. Re-Evaluation - Re-Evaluation First Re-Evaluation Time: 16:48 Change: Unchanged Comment: At 16:48, I discussed Sinuses CT with the patient. Second Re-Evaluation Time: 17:00 Change: Unchanged Comment: I pulled a 1 cm tissue paper from the left naris. EENT Course/Dx - Course Course Of Treatment: 50 y/o F with recent left upper dental infection presents with purulent drainage from left naris. No systemic signs of infection, dental pain resolved, no pain with EOM. No fevers, check a CT of the sinuses (concern for abscess vs FB) as discussed with ENT. Send culture - Diagnoses Provider Diagnoses: Foreign body in nose - Provider Notifications Discussed Care Of Patient With: Froylan Pepe - At 15:35, Dr. Froylan Pepe recommended CT for her sinuses. At 17:08, Dr. Froylan Rock recommends a normal saline spray and bacitracin to the nose. Time Discussed With Above Provider: 15:35 Discharge ED - Sign-Out/Discharge Documenting (check all that apply): Patient Departure - Discharge - Discharge Plan Condition: Stable Disposition: HOME Patient Education Materials: Nasal Foreign Body in Children (ED) Referrals: [facility] [Outside] Additional Instructions: You were seen in the ER for foreign body in her nose. Please use bacitracin and nasal spray in your nose daily. Please return for fevers, worsening nasal pain, headaches, or if you're concerned. Please do not place anything in your nose. - Billing Disposition and Condition Condition: STABLE Disposition: Home - Attestation Statements Document Initiated by Gloria: Yes Documenting Scribe: Lynnette Mullen Provider For Whom Gloria is Documenting (Include Credential): Aaliyah Nguyen MD Scribe Attestation: I, Lynnette Mullen, scribed for Aaliyah Nguyen MD on 05/26/19 at 1643. Scribe Documentation Reviewed: Yes Provider Attestation: The documentation as recorded by the Lynnette santiago accurately reflects the service I personally performed and the decisions made by , Aaliyah Nguyen MD Status of Scribe Document: Viewed
[2019-05-25] MEDS ORDERED: Clindamycin CAP* 150 MG PO ONE (15:21)
[2019-05-25] MEDS ORDERED: Clindamycin CAP* 150 MG ONE (17:08)
[2019-05-25] MEDS ORDERED: Bacitracin OINTMENT* 0.5% 0.5 oz TUBE TOPICAL ONE (17:09)
[2019-05-25 17:16] VITALS: BP 104/96
--- NOTE | 2019-05-26 06:25 | ED ---
Imaging and Labs Follow Up Follow Up Type: Labs/Cultures Labs/Culture Result: Nasal culture results are still pending at this time. Patient Communication/Plan: follow up on culture and sensitivity once resulted Nothing further at this time Provider Diagnoses: Foreign body in nose
--- NOTE | 2019-05-27 06:05 | ED ---
Imaging and Labs Follow Up Follow Up Type: Labs/Cultures Labs/Culture Result: Nasal culture resulted in 2+ Klebsiella oxytoca. At the time the patient was treated in the ED she showed no signs of infection and had a foreign body ( tissue paper) in her nare. Because of this it is suggested the patient does not require antibiotics at this time. Patient Communication/Plan: Nothing further at this time. Provider Diagnoses: Foreign body in nose
== END 2019-05-25 17:15 | disposition home or self-care (01) ==
LOC: ED 15:03
DX: R04.0 Epistaxis (principal); S00.35XA Superficial foreign body of nose, initial encounter; X58.XXXA Exposure to other specified factors, initial encounter; Y92.9 Unspecified place or not applicable; B99.9 Unspecified infectious disease
CPT/HCPCS: 70486; 87070; 87077; 87186; 99282; A9270-GY

== ENCOUNTER 2020-11-25 20:04 | Inpatient (IN) ==
[2020-11-25 21:55] LABS: ABS Eosinophils 0.2 10^3/ul (0-0.6); ABS Lymphocytes 1.2 10^3/ul (1.0-4.8); ABS Monocytes 0.3 10^3/ul (0-0.8); ABS Neutrophils 3.8 10^3/ul (1.5-7.7); Hematocrit 39 % (35-47); Hemoglobin 13.1 g/dL (12.0-16.0); Mean Corpuscular HGB Conc 34 g/dL (31-36); Mean Corpuscular Hemoglobin 33 pg (27-31); Mean Corpuscular Volume 100 fL (80-97); Mean Platelet Volume 9.5 fL (7.4-10.4); Nucleated Red Blood Cells % 0.1; Platelet Count 161 10^3/uL (150-450); Red Blood Count 3.93 10^6 /uL (3.70-4.87); Red Cell Distribution Width 13 % (10-15); White Blood Count 5.5 10^3/uL (3.5-10.8)
[2020-11-25 22:12] LABS: ALT 228 U/L (7-52); AST 117 U/L (13-39); Albumin 3.3 g/dL (3.2-5.2); Alkaline Phosphatase 352 U/L (34-104); Anion Gap 5 mmol/L (2-11); Blood Urea Nitrogen 19 mg/dL (6-24); C Reactive Protein 93.45 mg/L (<8.01); CO2 Carbon Dioxide 29 mmol/L (22-32); Calcium 8.7 mg/dL (8.6-10.3); Chloride 97 mmol/L (101-111); EGFR Non-African American 105.8 (>60); Globulin 3.4 g/dL (2-4); Glucose 332 mg/dL (70-100); Potassium 3.9 mmol/L (3.5-5.0); Sodium 131 mmol/L (135-145); Total Protein 6.7 g/dL (6.4-8.9)
[2020-11-25 22:13] LABS: Troponin I 0.01 ng/mL (<0.03)
[2020-11-25] MEDS ORDERED: Furosemide 40 mg/4 ml IV VIAL IV SLOW PU ONE (22:24)
[2020-11-25] MEDS ORDERED: Iodixanol (CONTRAST) 320 MG/ML 100 ML SDV IV ONE (22:59)
[2020-11-25 23:56] LABS: Hepatitis B Surface Antigen Nonreactive (Nonreactive)
[2020-11-26 00:02] LABS: Hepatitis A Ab IgM Negative (Negative); Hepatitis B Core IgM Nonreactive (Nonreactive)
[2020-11-26 00:14] LABS: Hepatitis C Antibody Negative (Negative)
[2020-11-26] MEDS ORDERED: Dextrose 50% Syringe 50 ml 25 GM/50 ML SYRINGE IV PUSH PRN (01:14)
[2020-11-26 02:16] LABS: Urine Appearance Cloudy; Urine Bilirubin Negative (Negative); Urine Blood 1+ (Negative); Urine Color Straw; Urine Glucose 3+(>=500 mg/dL) (Negative); Urine Ketones Negative (Negative); Urine Nitrite Negative (Negative); Urine Protein 2+(100 mg/dL) (Negative); Urine Specific Gravity 1.016 (1.002-1.030); Urine Urobilinogen Negative (Negative)
[2020-11-26 02:29] LABS: Urine Bacteria Absent (Absent); Urine Red Blood Cell 3+(>10/hpf) (Absent); Urine Squamous Epithelial Cell Present (Absent); Urine White Blood Cell 3+(>20/hpf) (Absent)
[2020-11-26 02:30] LABS: TSH Ultra Thyroid Stim Horm 3.32 mcIU/mL (0.34-5.60)
[2020-11-26] MEDS: Enoxaparin 40 MG/0.4 ML SYR SUBCUT SCH (03:21)
[2020-11-26 05:05] LABS: ABS Eosinophils 0.2 10^3/ul (0-0.6); ABS Lymphocytes 1.4 10^3/ul (1.0-4.8); ABS Monocytes 0.5 10^3/ul (0-0.8); ABS Neutrophils 4.1 10^3/ul (1.5-7.7); Eosinophil % 3.7 %; Hematocrit 33 % (35-47); Hemoglobin 11.3 g/dL (12.0-16.0); Lymphocyte % 22.9 %; Mean Corpuscular HGB Conc 35 g/dL (31-36); Mean Corpuscular Hemoglobin 34 pg (27-31); Mean Corpuscular Volume 98 fL (80-97); Mean Platelet Volume 9.1 fL (7.4-10.4); Platelet Count 156 10^3/uL (150-450); Red Blood Count 3.35 10^6 /uL (3.70-4.87); Red Cell Distribution Width 13 % (10-15); White Blood Count 6.3 10^3/uL (3.5-10.8)
[2020-11-26 05:12] LABS: INR 1.05 (0.82-1.09)
[2020-11-26 08:14] LABS: Vitamin B12 > 1450 pg/mL (180-914)
[2020-11-26] MEDS ORDERED: Insulin GLARGINE 100 un/ml 10 ml VIAL SUBCUT SCH (09:00)
[2020-11-26] MEDS: guaiFENesin 100 mg/5 ml LIQ unit dose cup PO PRN ×2 (11:45→17:24)
[2020-11-26] MEDS ORDERED: Furosemide 40 mg/4 ml IV VIAL IV ONE (15:08)
[2020-11-26 18:05] LABS: Urine Creatinine 36.42 mg/dL
[2020-11-26 20:28] LABS: UR Microalbumin (mg/L) 468.5 mg/L; Urine Microalbumin/Creatinine 1286.3 (<31)
[2020-11-27 06:11] LABS: ABS Eosinophils 0.2 10^3/ul (0-0.6); ABS Lymphocytes 1.3 10^3/ul (1.0-4.8); ABS Monocytes 0.4 10^3/ul (0-0.8); ABS Neutrophils 2.8 10^3/ul (1.5-7.7); Eosinophil % 4.6 %; Hematocrit 33 % (35-47); Hemoglobin 11.3 g/dL (12.0-16.0); Lymphocyte % 27.1 %; Mean Corpuscular HGB Conc 34 g/dL (31-36); Mean Corpuscular Hemoglobin 34 pg (27-31); Mean Corpuscular Volume 100 fL (80-97); Mean Platelet Volume 9.2 fL (7.4-10.4); Nucleated Red Blood Cells % 0.1; Platelet Count 156 10^3/uL (150-450); Red Blood Count 3.31 10^6 /uL (3.70-4.87); Red Cell Distribution Width 13 % (10-15); White Blood Count 4.8 10^3/uL (3.5-10.8)
[2020-11-27 06:28] LABS: Albumin 2.7 g/dL (3.2-5.2); C Reactive Protein 23.62 mg/L (<8.01); Calcium 8.2 mg/dL (8.6-10.3); EGFR African American 123.2 (>60); EGFR Non-African American 101.8 (>60); Globulin 2.6 g/dL (2-4); Potassium 4.1 mmol/L (3.5-5.0); Total Bilirubin 0.4 mg/dL (0.2-1.0); Total Protein 5.3 g/dL (6.4-8.9)
[2020-11-27] MEDS: Enoxaparin 40 MG/0.4 ML SYR SUBCUT SCH (10:10)
[2020-11-27] MEDS: Insulin GLARGINE 100 un/ml 10 ml VIAL SUBCUT SCH (10:12)
[2020-11-27] MEDS: guaiFENesin 100 mg/5 ml LIQ unit dose cup PO PRN ×2 (10:14→20:14)
[2020-11-27] MEDS: Azithromycin 500 mg/250 ml NS 500 MG/250 ML BAG IVPB SCH (11:08)
[2020-11-27 12:30] LABS: Glucose Confirmatory 456 mg/dL (70-100)
[2020-11-27] MEDS ORDERED: Dextrose 50% Syringe 50 ml 25 GM/50 ML SYRINGE IV PUSH PRN (13:02)
[2020-11-27 13:35] LABS: HDL Cholesterol 93.2 mg/dL
[2020-11-27] MEDS ORDERED: Furosemide 40 mg/4 ml IV VIAL IV ONE (18:11)
[2020-11-28] MEDS: guaiFENesin 100 mg/5 ml LIQ unit dose cup PO PRN ×3 (02:00→21:18)
[2020-11-28] MEDS: Enoxaparin 40 MG/0.4 ML SYR SUBCUT SCH (08:25)
[2020-11-28] MEDS: Insulin GLARGINE 100 un/ml 10 ml VIAL SUBCUT SCH (08:26)
[2020-11-28] MEDS: Azithromycin 500 mg/250 ml NS 500 MG/250 ML BAG IVPB SCH (12:57)
[2020-11-29] MEDS: guaiFENesin 100 mg/5 ml LIQ unit dose cup PO PRN (06:36)
[2020-11-29] MEDS: Insulin GLARGINE 100 un/ml 10 ml VIAL SUBCUT SCH (09:17)
[2020-11-29] MEDS: Azithromycin 500 mg/250 ml NS 500 MG/250 ML BAG IVPB SCH (11:35)
[2020-11-29 11:41] VITALS: BP 140/75
== END 2020-11-29 16:30 | disposition home or self-care (01) | DRG 142 ==
LOC: MED 20:04 → ED 20:04 → OBSVTOIN 11-26 01:11 → INTOOBSV 11-26 01:11 → MED 11-26 02:58
PROVIDERS: ADMIT Hospitalist; ATTEND Internal Medicine

== ENCOUNTER 2021-11-05 13:56 | Observation (INO) ==
[2021-11-05 15:26] LABS: ABS Eosinophils 0.2 10^3/ul (0-0.6); ABS Monocytes 0.3 10^3/ul (0-0.8); ABS Neutrophils 3.8 10^3/ul (1.5-7.7); Eosinophil % 3.4 %; Hematocrit 24 % (35-47); Hemoglobin 8.2 g/dL (12.0-16.0); Lymphocyte % 18.5 %; Mean Corpuscular HGB Conc 35 g/dL (31-36); Mean Corpuscular Hemoglobin 32 pg (27-31); Mean Corpuscular Volume 92 fL (80-97); Mean Platelet Volume 9.1 fL (7.4-10.4); Nucleated Red Blood Cells % 0.1; Platelet Count 173 10^3/uL (150-450); Red Blood Count 2.58 10^6 /uL (3.70-4.87); Red Cell Distribution Width 14 % (10-15); White Blood Count 5.3 10^3/uL (3.5-10.8)
[2021-11-05] MEDS ORDERED: Dextrose 50% Syringe 50 ml 25 GM/50 ML SYRINGE IV PUSH PRN ×5 (15:35→22:51)
[2021-11-05] MEDS ORDERED: hydrALAZINE 20 mg/ml 1 ML Vial IV IV SLOW PU ONE (15:36)
[2021-11-05] MEDS ORDERED: Furosemide 40 mg/4 ml IV VIAL IV SLOW PU ONE (15:47)
[2021-11-05 15:50] LABS: High Sens Troponin Baseline 11 pg/mL (<15)
[2021-11-05 16:22] LABS: ALT 32 U/L (7-52); Albumin 3.1 g/dL (3.2-5.2); Albumin/Globulin Ratio 1.1 (1-3); Alkaline Phosphatase 65 U/L (35-149); Blood Urea Nitrogen 31 mg/dL (6-24); C Reactive Protein 1.15 mg/L (<8.01); CO2 Carbon Dioxide 26 mmol/L (22-32); Calcium 8.5 mg/dL (8.6-10.3); Chloride 102 mmol/L (101-111); Globulin 2.7 g/dL (2-4); Glucose 292 mg/dL (70-100); Sodium 133 mmol/L (135-145); Total Protein 5.8 g/dL (6.4-8.9); eGFR CKD-EPI 105.3 (>60)
[2021-11-05 16:24] LABS: Anion Gap 5 mmol/L (2-11)
[2021-11-05 16:48] LABS: High Sensitivity Troponin 1 Hr 9 pg/mL (<15)
[2021-11-05 17:07] LABS: Potassium Redraw 3.6 mmol/L (3.5-5.0)
[2021-11-05 17:11] LABS: Urine Appearance Clear; Urine Bilirubin Negative (Negative); Urine Blood 1+ (Negative); Urine Color Straw; Urine Glucose 3+(>=500 mg/dL) (Negative); Urine Ketones Negative (Negative); Urine Nitrite Negative (Negative); Urine Protein 2+(100 mg/dL) (Negative); Urine Specific Gravity 1.007 (1.002-1.030); Urine Urobilinogen Negative (Negative)
[2021-11-05 17:44] LABS: Urine Bacteria Absent (Absent); Urine Red Blood Cell Trace(0-2/hpf) (Absent); Urine White Blood Cell Trace(0-5/hpf) (Absent)
[2021-11-05] MEDS ORDERED: Albuterol HFA INHALER 8 gm MDI INH PRN (17:45)
[2021-11-05] MEDS: Enoxaparin 40 MG/0.4 ML SYR SUBCUT SCH (18:44)
[2021-11-06] MEDS ORDERED: Insulin GLARGINE 100 un/ml 10 ml VIAL SUBCUT ONE ×2 (00:36→21:00)
[2021-11-06] MEDS ORDERED: guaiFENesin 100 mg/5 ml LIQ unit dose cup PO ONE (00:37)
[2021-11-06 06:12] LABS: ABS Eosinophils 0.2 10^3/ul (0-0.6); ABS Lymphocytes 1.4 10^3/ul (1.0-4.8); ABS Monocytes 0.4 10^3/ul (0-0.8); ABS Neutrophils 3.5 10^3/ul (1.5-7.7); Eosinophil % 4.3 %; Hematocrit 24 % (35-47); Hemoglobin 8.5 g/dL (12.0-16.0); Lymphocyte % 25.7 %; Mean Corpuscular HGB Conc 35 g/dL (31-36); Mean Corpuscular Hemoglobin 32 pg (27-31); Mean Corpuscular Volume 92 fL (80-97); Mean Platelet Volume 9.6 fL (7.4-10.4); Platelet Count 179 10^3/uL (150-450); Red Blood Count 2.67 10^6 /uL (3.70-4.87); Red Cell Distribution Width 14 % (10-15); White Blood Count 5.6 10^3/uL (3.5-10.8)
[2021-11-06 06:43] LABS: Calcium 8.1 mg/dL (8.6-10.3); Potassium 3.8 mmol/L (3.5-5.0); eGFR CKD-EPI 94.9 (>60)
[2021-11-06] MEDS ORDERED: Insulin GLARGINE 100 un/ml 10 ml VIAL SUBCUT SCH ×2 (09:00→21:00)
[2021-11-06] MEDS: Furosemide 40 mg/4 ml IV VIAL IV SCH ×2 (09:43→19:51)
[2021-11-06] MEDS: Enoxaparin 40 MG/0.4 ML SYR SUBCUT SCH (19:51)
[2021-11-07 06:16] LABS: ABS Eosinophils 0.3 10^3/ul (0-0.6); ABS Monocytes 0.5 10^3/ul (0-0.8); ABS Neutrophils 3.3 10^3/ul (1.5-7.7); Eosinophil % 4.8 %; Hematocrit 25 % (35-47); Hemoglobin 8.8 g/dL (12.0-16.0); Lymphocyte % 32.8 %; Mean Corpuscular HGB Conc 35 g/dL (31-36); Mean Corpuscular Hemoglobin 32 pg (27-31); Mean Corpuscular Volume 91 fL (80-97); Mean Platelet Volume 8.6 fL (7.4-10.4); Nucleated Red Blood Cells % 0.1; Platelet Count 177 10^3/uL (150-450); Red Blood Count 2.76 10^6 /uL (3.70-4.87); Red Cell Distribution Width 14 % (10-15); White Blood Count 6.1 10^3/uL (3.5-10.8)
[2021-11-07 06:47] LABS: Anion Gap 6 mmol/L (2-11); Blood Urea Nitrogen 35 mg/dL (6-24); CO2 Carbon Dioxide 29 mmol/L (22-32); Calcium 8.3 mg/dL (8.6-10.3); Chloride 105 mmol/L (101-111); Glucose 106 mg/dL (70-100); Potassium 3.7 mmol/L (3.5-5.0); Sodium 140 mmol/L (135-145); eGFR CKD-EPI 90.5 (>60)
[2021-11-07] MEDS: Insulin GLARGINE 100 un/ml 10 ml VIAL SUBCUT SCH (08:48)
[2021-11-07] MEDS: Furosemide 40 mg/4 ml IV VIAL IV SCH ×2 (08:49→22:20)
[2021-11-07 12:21] LABS: Folate 12.55 ng/mL (5.90-24.80)
[2021-11-07 12:22] LABS: Vitamin B12 1364 pg/mL (180-914)
[2021-11-07] MEDS: Enoxaparin 40 MG/0.4 ML SYR SUBCUT SCH (18:42)
[2021-11-07 19:26] LABS: C Reactive Protein < 1.00 mg/L (<8.01)
[2021-11-08 05:18] LABS: ABS Eosinophils 0.3 10^3/ul (0-0.6); ABS Lymphocytes 1.7 10^3/ul (1.0-4.8); ABS Monocytes 0.5 10^3/ul (0-0.8); ABS Neutrophils 3.4 10^3/ul (1.5-7.7); Eosinophil % 5.2 %; Hematocrit 25 % (35-47); Hemoglobin 8.8 g/dL (12.0-16.0); Lymphocyte % 28.7 %; Mean Corpuscular HGB Conc 35 g/dL (31-36); Mean Corpuscular Hemoglobin 32 pg (27-31); Mean Corpuscular Volume 92 fL (80-97); Mean Platelet Volume 8.9 fL (7.4-10.4); Platelet Count 183 10^3/uL (150-450); Red Blood Count 2.75 10^6 /uL (3.70-4.87); Red Cell Distribution Width 14 % (10-15); White Blood Count 5.9 10^3/uL (3.5-10.8)
[2021-11-08 05:50] LABS: Calcium 8.2 mg/dL (8.6-10.3); eGFR CKD-EPI 86.4 (>60)
[2021-11-08] MEDS: Furosemide 40 mg/4 ml IV VIAL IV SCH (09:19)
[2021-11-08] MEDS: Insulin GLARGINE 100 un/ml 10 ml VIAL SUBCUT SCH (09:20)
[2021-11-08 12:30] VITALS: BP 157/85
== END 2021-11-08 14:20 | disposition home or self-care (01) ==
LOC: EDHOLD 13:56 → ED 13:56 → SUATTDRO 17:33 → MEDTELE 19:44
PROVIDERS: ADMIT Nurse Practitioner; ATTEND Hospitalist

== ENCOUNTER 2021-11-12 21:03 | Inpatient (IN) ==
[2021-11-13] MEDS ORDERED: Furosemide 20 mg/2 ml IV VIAL IV SLOW PU ONE (00:34)
[2021-11-13 00:42] LABS: ABS Lymphocytes 0.3 10^3/ul (1.0-4.8); ABS Monocytes 0.4 10^3/ul (0-0.8); ABS Neutrophils 4.1 10^3/ul (1.5-7.7); Eosinophil % 0.8 %; Hematocrit 28 % (35-47); Hemoglobin 9.6 g/dL (12.0-16.0); Lymphocyte % 6.1 %; Mean Corpuscular HGB Conc 35 g/dL (31-36); Mean Corpuscular Hemoglobin 32 pg (27-31); Mean Corpuscular Volume 92 fL (80-97); Mean Platelet Volume 9.1 fL (7.4-10.4); Platelet Count 157 10^3/uL (150-450); Red Blood Count 3.03 10^6 /uL (3.70-4.87); Red Cell Distribution Width 13 % (10-15); White Blood Count 4.8 10^3/uL (3.5-10.8)
[2021-11-13 00:54] LABS: Activated Partial Thrombo Time 38.3 seconds (26.0-38.0); INR 1.06 (0.86-1.15)
[2021-11-13 01:19] LABS: Calcium 8.2 mg/dL (8.6-10.3); Potassium 4.2 mmol/L (3.5-5.0); Total Bilirubin 0.4 mg/dL (0.2-1.0)
[2021-11-13 01:25] LABS: Albumin/Globulin Ratio 1.2 (1-3); C Reactive Protein 4.28 mg/L (<8.01); Globulin 2.5 g/dL (2-4); Total Protein 5.5 g/dL (6.4-8.9); eGFR CKD-EPI 96.5 (>60)
[2021-11-13] MEDS ORDERED: Iodixanol (CONTRAST) 320 MG/ML 100 ML SDV IV ONE ×2 (01:45→01:59)
[2021-11-13 02:17] LABS: Urine Appearance Clear; Urine Bilirubin Negative (Negative); Urine Blood 1+ (Negative); Urine Color Yellow; Urine Glucose 3+(>=500 mg/dL) (Negative); Urine Ketones Negative (Negative); Urine Nitrite Negative (Negative); Urine Protein 2+(100 mg/dL) (Negative); Urine Specific Gravity 1.007 (1.002-1.030); Urine Urobilinogen Negative (Negative)
[2021-11-13 02:30] LABS: High Sensitivity Troponin 1 Hr 10 pg/mL (<15)
[2021-11-13 02:45] LABS: Urine Bacteria Absent (Absent); Urine Red Blood Cell 2+(6-10/hpf) (Absent); Urine White Blood Cell Trace(0-5/hpf) (Absent)
[2021-11-13] MEDS: Enoxaparin 40 MG/0.4 ML SYR SUBCUT SCH (05:56)
[2021-11-13] MEDS ORDERED: Albuterol HFA INHALER 8 gm MDI INH PRN (06:31)
[2021-11-13] MEDS ORDERED: Dextrose 50% Syringe 50 ml 25 GM/50 ML SYRINGE IV PUSH PRN (06:33)
[2021-11-13] MEDS ORDERED: Furosemide 40 mg/4 ml IV VIAL IV SLOW PU ONE ×2 (06:34→12:00)
[2021-11-13] MEDS ORDERED: Remdesivir 100 mg Vial 200 MG in NS 0.9% 250 ml 210 ML IV ONE (06:34)
[2021-11-13] MEDS: Ondansetron 4 mg VIAL 2 MG/ML 2 ml VIAL IV PRN ×2 (07:15→22:17)
[2021-11-13] MEDS ORDERED: Polyethylene Glycol 3350 17 GM PACKET PO PRN (08:18)
[2021-11-13 08:50] LABS: INR 1.13 (0.86-1.15)
[2021-11-13] MEDS: Insulin GLARGINE 100 un/ml 10 ml VIAL SUBCUT SCH (09:15)
[2021-11-13 09:46] LABS: Albumin 2.8 g/dL (3.2-5.2); Albumin/Globulin Ratio 1.2 (1-3); Calcium 8.1 mg/dL (8.6-10.3); Globulin 2.4 g/dL (2-4); Potassium 3.8 mmol/L (3.5-5.0); Total Bilirubin 0.4 mg/dL (0.2-1.0); Total Protein 5.2 g/dL (6.4-8.9); eGFR CKD-EPI 91.9 (>60)
[2021-11-14] MEDS ORDERED: guaiFENesin DM SUGAR FREE 100 MG/10 MG 5 ML UDC PO PRN (03:18)
[2021-11-14] MEDS: Benzocaine/Menthol LOZ PO PRN ×2 (03:50→09:33)
[2021-11-14] MEDS: Enoxaparin 40 MG/0.4 ML SYR SUBCUT SCH (05:09)
[2021-11-14 05:53] LABS: INR 1.11 (0.86-1.15)
[2021-11-14 06:29] LABS: Albumin 2.5 g/dL (3.2-5.2); Albumin/Globulin Ratio 1.1 (1-3); Globulin 2.2 g/dL (2-4); Potassium 3.7 mmol/L (3.5-5.0); Total Bilirubin 0.3 mg/dL (0.2-1.0); Total Protein 4.7 g/dL (6.4-8.9)
[2021-11-14] MEDS: Insulin GLARGINE 100 un/ml 10 ml VIAL SUBCUT SCH (09:13)
[2021-11-14] MEDS: Furosemide 40 mg/4 ml IV VIAL IV SLOW PU SCH (09:14)
[2021-11-14] MEDS: Remdesivir 100 mg Vial 100 MG in NS 0.9% 250 ml 230 ML IV SCH (09:16)
[2021-11-14] MEDS ORDERED: Insulin GLARGINE 100 un/ml 10 ml VIAL SUBCUT ONE (10:51)
[2021-11-15] MEDS: Enoxaparin 40 MG/0.4 ML SYR SUBCUT SCH (04:52)
[2021-11-15 06:40] LABS: ABS Lymphocytes 1.2 10^3/ul (1.0-4.8); ABS Monocytes 0.4 10^3/ul (0-0.8); ABS Neutrophils 2.1 10^3/ul (1.5-7.7); Eosinophil % 0.3 %; Hematocrit 25 % (35-47); Hemoglobin 8.7 g/dL (12.0-16.0); Lymphocyte % 31.9 %; Mean Corpuscular HGB Conc 36 g/dL (31-36); Mean Corpuscular Hemoglobin 32 pg (27-31); Mean Corpuscular Volume 91 fL (80-97); Mean Platelet Volume 9.7 fL (7.4-10.4); Platelet Count 145 10^3/uL (150-450); Red Blood Count 2.72 10^6 /uL (3.70-4.87); Red Cell Distribution Width 13 % (10-15); White Blood Count 3.7 10^3/uL (3.5-10.8)
[2021-11-15 06:46] LABS: INR 1.11 (0.86-1.15)
[2021-11-15 07:04] LABS: Albumin 2.4 g/dL (3.2-5.2); Albumin/Globulin Ratio 1.1 (1-3); Calcium 7.8 mg/dL (8.6-10.3); Globulin 2.1 g/dL (2-4); Potassium 3.7 mmol/L (3.5-5.0); Total Bilirubin 0.2 mg/dL (0.2-1.0); Total Protein 4.5 g/dL (6.4-8.9); eGFR CKD-EPI 90.5 (>60)
[2021-11-15] MEDS: Furosemide 40 mg/4 ml IV VIAL IV SLOW PU SCH (08:48)
[2021-11-15] MEDS: Remdesivir 100 mg Vial 100 MG in NS 0.9% 250 ml 230 ML IV SCH (08:59)
[2021-11-15] MEDS ORDERED: Insulin GLARGINE 100 un/ml 10 ml VIAL SUBCUT SCH (09:00)
[2021-11-15 11:23] VITALS: BP 125/65
== END 2021-11-15 12:53 | disposition home or self-care (01) | DRG 137 ==
LOC: ED 21:03 → SUATTDRO 11-13 05:25 → EDHOLD 11-13 05:25 → MED 11-13 11:18
PROVIDERS: ADMIT Internal Medicine; ATTEND Hospitalist

== ENCOUNTER 2021-12-13 19:10 | Observation (INO) ==
[2021-12-13] MEDS ORDERED: Furosemide 40 mg/4 ml IV VIAL IV SLOW PU ONE (22:18)
[2021-12-13 22:48] LABS: ABS Eosinophils 0.3 10^3/ul (0-0.6); ABS Lymphocytes 1.1 10^3/ul (1.0-4.8); ABS Monocytes 0.3 10^3/ul (0-0.8); Eosinophil % 4.9 %; Hematocrit 29 % (35-47); Hemoglobin 9.5 g/dL (12.0-16.0); Lymphocyte % 19.7 %; Mean Corpuscular HGB Conc 33 g/dL (31-36); Mean Corpuscular Hemoglobin 30 pg (27-31); Mean Corpuscular Volume 91 fL (80-97); Mean Platelet Volume 8.3 fL (7.4-10.4); Platelet Count 236 10^3/uL (150-450); Red Blood Count 3.14 10^6 /uL (3.70-4.87); Red Cell Distribution Width 14 % (10-15); White Blood Count 5.8 10^3/uL (3.5-10.8)
[2021-12-13 23:30] LABS: Albumin 2.7 g/dL (3.2-5.2)
[2021-12-13 23:36] LABS: Globulin 2.6 g/dL (2-4); Total Protein 5.3 g/dL (6.4-8.9)
[2021-12-13 23:39] LABS: Potassium 4.2 mmol/L (3.5-5.0); Total Bilirubin 0.3 mg/dL (0.2-1.0); eGFR CKD-EPI 66.1 (>60)
[2021-12-14 00:34] LABS: High Sensitivity Troponin 1 Hr 15 pg/mL (<15)
[2021-12-14] MEDS ORDERED: Albuterol HFA INHALER 8 gm MDI INH PRN (02:42)
[2021-12-14] MEDS ORDERED: Dextrose 50% Syringe 50 ml 25 GM/50 ML SYRINGE IV PUSH PRN ×4 (02:44→20:49)
[2021-12-14 04:53] LABS: Ferritin 128.8 ng/mL (11-307)
[2021-12-14 05:55] LABS: Urine Appearance Clear; Urine Bilirubin Negative (Negative); Urine Blood 1+ (Negative); Urine Color Straw; Urine Glucose 3+(>=500 mg/dL) (Negative); Urine Ketones Negative (Negative); Urine Nitrite Negative (Negative); Urine Protein 2+(100 mg/dL) (Negative); Urine Specific Gravity 1.007 (1.002-1.030); Urine Urobilinogen Negative (Negative)
[2021-12-14 06:13] LABS: Urine Bacteria Absent (Absent); Urine Red Blood Cell Trace(0-2/hpf) (Absent); Urine Squamous Epithelial Cell Present (Absent); Urine White Blood Cell Absent (Absent)
[2021-12-14 06:23] LABS: ABS Eosinophils 0.3 10^3/ul (0-0.6); ABS Monocytes 0.4 10^3/ul (0-0.8); ABS Neutrophils 3.5 10^3/ul (1.5-7.7); Eosinophil % 4.9 %; Hematocrit 25 % (35-47); Hemoglobin 8.5 g/dL (12.0-16.0); Lymphocyte % 19.8 %; Mean Corpuscular HGB Conc 34 g/dL (31-36); Mean Corpuscular Hemoglobin 31 pg (27-31); Mean Corpuscular Volume 92 fL (80-97); Mean Platelet Volume 8.8 fL (7.4-10.4); Platelet Count 209 10^3/uL (150-450); Red Blood Count 2.75 10^6 /uL (3.70-4.87); Red Cell Distribution Width 14 % (10-15); White Blood Count 5.3 10^3/uL (3.5-10.8)
[2021-12-14 06:44] LABS: Potassium 3.5 mmol/L (3.5-5.0); eGFR CKD-EPI 78.1 (>60)
[2021-12-14] MEDS ORDERED: Senna TAB 8.6 mg TAB PO PRN (07:59)
[2021-12-14] MEDS ORDERED: Magnesium Hydroxide LIQ 30 ML UDC PO PRN (07:59)
[2021-12-14] MEDS ORDERED: guaiFENesin DM SUGAR FREE 100 MG/10 MG 5 ML UDC PO PRN (08:38)
[2021-12-14] MEDS: Bumetanide IV 0.25 MG/ML 4 ml VIAL (1 mg) SLOW PUSH SCH ×2 (08:56→21:06)
[2021-12-14] MEDS ORDERED: Insulin GLARGINE 100 un/ml 10 ml VIAL SUBCUT SCH ×2 (09:00→21:00)
[2021-12-14] MEDS: Enoxaparin 40 MG/0.4 ML SYR SUBCUT SCH (14:57)
[2021-12-14] MEDS: Potassium Chlor 20 meq TAB.ER PO SCH (21:09)
[2021-12-14 21:36] LABS: Calcium 8.1 mg/dL (8.6-10.3); Magnesium 2.1 mg/dL (1.9-2.7); Potassium 4.3 mmol/L (3.5-5.0); eGFR CKD-EPI 81.5 (>60)
[2021-12-15] MEDS: Potassium Chlor 20 meq TAB.ER PO SCH (03:14)
[2021-12-15 05:09] LABS: ABS Basophils 0.1 10^3/ul (0-0.2); ABS Eosinophils 0.3 10^3/ul (0-0.6); ABS Lymphocytes 1.5 10^3/ul (1.0-4.8); ABS Monocytes 0.4 10^3/ul (0-0.8); ABS Neutrophils 3.2 10^3/ul (1.5-7.7); Eosinophil % 5.1 %; Hematocrit 25 % (35-47); Hemoglobin 8.5 g/dL (12.0-16.0); Lymphocyte % 27.2 %; Mean Corpuscular HGB Conc 33 g/dL (31-36); Mean Corpuscular Hemoglobin 30 pg (27-31); Mean Corpuscular Volume 91 fL (80-97); Mean Platelet Volume 9.4 fL (7.4-10.4); Platelet Count 198 10^3/uL (150-450); Red Blood Count 2.78 10^6 /uL (3.70-4.87); Red Cell Distribution Width 14 % (10-15); White Blood Count 5.4 10^3/uL (3.5-10.8)
[2021-12-15 06:18] LABS: Calcium 7.9 mg/dL (8.6-10.3); eGFR CKD-EPI 89.1 (>60)
[2021-12-15] MEDS: Bumetanide IV 0.25 MG/ML 4 ml VIAL (1 mg) SLOW PUSH SCH (08:44)
[2021-12-15] MEDS ORDERED: Insulin GLARGINE 100 un/ml 10 ml VIAL SUBCUT SCH ×2 (09:00→21:00)
[2021-12-15] MEDS ORDERED: Dextrose 50% Syringe 50 ml 25 GM/50 ML SYRINGE IV PUSH PRN (10:34)
[2021-12-15] MEDS: Enoxaparin 40 MG/0.4 ML SYR SUBCUT SCH (12:14)
[2021-12-16 04:59] LABS: ABS Eosinophils 0.2 10^3/ul (0-0.6); ABS Lymphocytes 1.2 10^3/ul (1.0-4.8); ABS Monocytes 0.4 10^3/ul (0-0.8); ABS Neutrophils 2.8 10^3/ul (1.5-7.7); Eosinophil % 4.9 %; Hematocrit 24 % (35-47); Hemoglobin 8.1 g/dL (12.0-16.0); Lymphocyte % 26.1 %; Mean Corpuscular HGB Conc 34 g/dL (31-36); Mean Corpuscular Hemoglobin 31 pg (27-31); Mean Corpuscular Volume 92 fL (80-97); Platelet Count 174 10^3/uL (150-450); Red Cell Distribution Width 14 % (10-15); White Blood Count 4.7 10^3/uL (3.5-10.8)
[2021-12-16 05:11] LABS: Calcium 8.1 mg/dL (8.6-10.3); Magnesium 2.1 mg/dL (1.9-2.7); Potassium 4.3 mmol/L (3.5-5.0); eGFR CKD-EPI 68.6 (>60)
[2021-12-16 07:53] VITALS: BP 136/79
== END 2021-12-16 11:00 | disposition home or self-care (01) ==
LOC: EDHOLD 19:10 → ED 19:10 → SUATTDRO 12-14 02:28 → MED 12-14 05:15
PROVIDERS: ADMIT Internal Medicine; ATTEND Student in an Organized Health Care Education/Training Program

== ENCOUNTER 2023-06-12 11:45 | Inpatient (IN) ==
[2023-06-12] MEDS ORDERED: Ondansetron 4 mg VIAL 2 MG/ML 2 ml VIAL IV ONE (12:36)
[2023-06-12] MEDS ORDERED: cefTRIAXone 1 gm/50 mL D5W 1 GM/50 ML BAG IV ONE ×2 (12:39→16:33)
[2023-06-12] MEDS ORDERED: Azithromycin 500 mg/250 ml NS 500 MG/250 ML BAG IVPB ONE (12:39)
[2023-06-12 13:03] LABS: Hematocrit 27.8 % (35-45); Hemoglobin 9.1 g/dL (11.5-14.3); Mean Corpuscular Hemoglobin 30.4 pg (27-33); Mean Corpuscular Hgb Conc 32.7 g/dL (31-36); Mean Corpuscular Volume 92.8 fL (80-97); Mean Platelet Volume 9.9 fL (7.5-11.2); Platelet Count 205 10^3/uL (150-450); Red Blood Count 2.99 10^6/uL (3.63-4.92); Red Cell Distribution Width 16.8 % (12-17); White Blood Count 17.2 10^3/uL (3.8-11.8)
[2023-06-12 13:06] LABS: Activated Partial Thrombo Time 38.2 seconds (26.0-38.0); INR 1.02 (0.83-1.13)
[2023-06-12 13:09] LABS: ABS Basophils 0.2 10^3/uL (0.0-0.1); ABS Lymphocytes 0.3 10^3/uL (1.0-4.8); ABS Monocytes 0.3 10^3/uL (0.0-0.9); ABS Neutrophils 16.4 10^3/uL (1.5-7.6); Lymphocyte % 1.6 %
[2023-06-12 13:18] LABS: Albumin 3.4 g/dL (3.2-5.2); Albumin/Globulin Ratio 1.1 (1-3); C Reactive Protein 7.83 mg/L (<8.01); Calcium 8.1 mg/dL (8.6-10.3); Creatinine, Serum 4.44 mg/dL (0.51-0.95); Globulin 3.2 g/dL (2-4); Potassium 2.9 mmol/L (3.5-5.0); Total Bilirubin 1.7 mg/dL (0.2-1.0); Total Protein 6.6 g/dL (6.4-8.9)
[2023-06-12] MEDS ORDERED: Iodixanol (CONTRAST) 320 MG/ML 100 ML SDV IV ONE (14:24)
[2023-06-12] MEDS ORDERED: metroNIDAZOLE IV 500 MG/100ML 500 MG/100 ML BAG IVPB ONE (16:33)
[2023-06-12 18:10] LABS: Urine Appearance Cloudy; Urine Bilirubin Negative (Negative); Urine Blood Negative (Negative); Urine Color Amber; Urine Glucose 3+(>=500 mg/dL) (Negative); Urine Ketones Negative (Negative); Urine Nitrite Negative (Negative); Urine Protein 3+(>=500 mg/dL) (Negative); Urine Specific Gravity 1.024 (1.002-1.030); Urine Urobilinogen Negative (Negative)
[2023-06-12] MEDS ORDERED: Piperacillin/Tazobac 3.375 BAG 3.375 GM/100 ML BAG IV ONE (18:32)
[2023-06-12] MEDS ORDERED: Bumetanide IV 0.25 MG/ML 4 ml VIAL (1 mg) IV SLOW PU ONE (18:34)
[2023-06-12] MEDS ORDERED: Zosyn per Pharmacy NOTE FOLLOW UP SCH (19:00)
[2023-06-12 19:01] LABS: Urine Bacteria Absent (Absent); Urine Red Blood Cell 3+(>10/hpf) (Absent); Urine Squamous Epithelial Cell Present (Absent); Urine White Blood Cell 1+(6-10/hpf) (Absent)
[2023-06-12] MEDS ORDERED: Insulin LISPRO FOR INSULIN PUMP SUBCUT SCH (20:00)
[2023-06-13] MEDS ORDERED: ZOSYN 3.375 GM Q12H per EXTENDED INFUSION IV SCH
[2023-06-13] MEDS ORDERED: Lactated Ringers 1000 ml BAG 1,000 ML IV SCH ×2 (05:00→05:19)
[2023-06-13] MEDS ORDERED: KCL 20 MEQ/100 ML IVPREMIX 20 MEQ/100 ML BAG IV SCH (06:00)
[2023-06-13 06:03] LABS: Hematocrit 23.7 % (35-45); Hemoglobin 7.9 g/dL (11.5-14.3); Mean Corpuscular Hemoglobin 31.1 pg (27-33); Mean Corpuscular Hgb Conc 33.4 g/dL (31-36); Mean Corpuscular Volume 93.2 fL (80-97); Mean Platelet Volume 10.1 fL (7.5-11.2); Platelet Count 141 10^3/uL (150-450); Red Blood Count 2.55 10^6/uL (3.63-4.92); Red Cell Distribution Width 16.6 % (12-17); White Blood Count 19.3 10^3/uL (3.8-11.8)
[2023-06-13 06:43] LABS: Albumin 2.9 g/dL (3.2-5.2); Albumin/Globulin Ratio 0.9 (1-3); Calcium 7.5 mg/dL (8.6-10.3); Creatinine, Serum 4.85 mg/dL (0.51-0.95); Globulin 3.1 g/dL (2-4); Potassium 3.5 mmol/L (3.5-5.0); Total Bilirubin 1.3 mg/dL (0.2-1.0); eGFR CKD-EPI 9.9 (>60)
[2023-06-13 06:46] LABS: ABS Basophils 0.1 10^3/uL (0.0-0.1); ABS Lymphocytes 0.4 10^3/uL (1.0-4.8); ABS Monocytes 0.5 10^3/uL (0.0-0.9); ABS Neutrophils 18.3 10^3/uL (1.5-7.6); Eosinophil % 0.2 %
[2023-06-13] MEDS: Cholecalciferol (VIT D3) 1,000 unit TAB PO SCH (08:18)
[2023-06-13] MEDS: Heparin 1,000 UNIT/ML 10 ml (10,000 UNITS) CATHLAB/DIALYSIS DIALYSIS PRN ×2 (10:30→14:15)
[2023-06-13] MEDS ORDERED: Oxacillin 2 GM in NS 0.9% 100 ml BAG 100 ML IVPB SCH (12:00)
[2023-06-13] MEDS: Oxacillin 2 GM in NS 0.9% 100 ml BAG 100 ML IVPB SCH ×3 (17:22→23:55)
[2023-06-14] MEDS: Oxacillin 2 GM in NS 0.9% 100 ml BAG 100 ML IVPB SCH ×5 (03:33→20:10)
[2023-06-14] MEDS: Cholecalciferol (VIT D3) 1,000 unit TAB PO SCH (07:33)
[2023-06-14 07:42] LABS: Hematocrit 23.1 % (35-45); Hemoglobin 7.6 g/dL (11.5-14.3); Mean Corpuscular Hemoglobin 30.8 pg (27-33); Mean Corpuscular Volume 93.5 fL (80-97); Mean Platelet Volume 10.4 fL (7.5-11.2); Platelet Count 127 10^3/uL (150-450); Red Blood Count 2.47 10^6/uL (3.63-4.92); Red Cell Distribution Width 16.7 % (12-17)
[2023-06-14 08:01] LABS: Calcium 7.5 mg/dL (8.6-10.3); Creatinine, Serum 3.77 mg/dL (0.51-0.95); Magnesium 1.9 mg/dL (1.9-2.7); eGFR CKD-EPI 13.4 (>60)
[2023-06-14 14:16] LABS: Hematocrit 25.1 % (35-45); Hemoglobin 8.1 g/dL (11.5-14.3)
[2023-06-14 16:30] LABS: Hepatitis Be Antigen Negative (Negative)
[2023-06-14 16:46] LABS: Hepatitis Be Antibody Negative (Negative)
[2023-06-14 18:10] LABS: Hepatitis B Surface Antigen Nonreactive (Nonreactive)
[2023-06-15] MEDS: Oxacillin 2 GM in NS 0.9% 100 ml BAG 100 ML IVPB SCH ×7 (00:10→23:59)
[2023-06-15 06:02] LABS: Hematocrit 23.7 % (35-45); Hemoglobin 7.9 g/dL (11.5-14.3); Mean Corpuscular Hemoglobin 31.4 pg (27-33); Mean Corpuscular Hgb Conc 33.4 g/dL (31-36); Mean Platelet Volume 10.5 fL (7.5-11.2); Platelet Count 142 10^3/uL (150-450); Red Blood Count 2.52 10^6/uL (3.63-4.92); Red Cell Distribution Width 16.3 % (12-17); White Blood Count 7.9 10^3/uL (3.8-11.8)
[2023-06-15 06:39] LABS: Albumin 2.7 g/dL (3.2-5.2); Albumin/Globulin Ratio 0.8 (1-3); Calcium 7.6 mg/dL (8.6-10.3); Creatinine, Serum 4.7 mg/dL (0.51-0.95); Globulin 3.2 g/dL (2-4); Total Bilirubin 1.9 mg/dL (0.2-1.0); Total Protein 5.9 g/dL (6.4-8.9); eGFR CKD-EPI 10.3 (>60)
[2023-06-15 07:36] LABS: ABS Eosinophils 0.3 10^3/uL (0.0-0.5); ABS Lymphocytes 0.9 10^3/uL (1.0-4.8); ABS Monocytes 0.5 10^3/uL (0.0-0.9); ABS Neutrophils 6.2 10^3/uL (1.5-7.6); Eosinophil % 3.2 %; Lymphocyte % 11.1 %; Nucleated Red Blood Cells % 0.1 %/100WBC (0.0-0.8)
[2023-06-15] MEDS: Cholecalciferol (VIT D3) 1,000 unit TAB PO SCH (10:11)
[2023-06-15] MEDS ORDERED: NS 0.9% 1000 ml BAG 100 ML IV PRN (14:53)
[2023-06-15] MEDS ORDERED: Albumin Human 25% 25 GM/100 ML BTL IV PRN (14:53)
[2023-06-15] MEDS ORDERED: NS 0.9% 1000 ml BAG 200 ML IV PRN (14:53)
[2023-06-15] MEDS: Heparin 1,000 UNIT/ML 10 ml (10,000 UNITS) CATHLAB/DIALYSIS DIALYSIS PRN ×4 (15:50→19:40)
[2023-06-15] MEDS: Heparin 5000 UNITS/ML 1 mL VIAL SUBCUT SCH (21:25)
[2023-06-16] MEDS: Oxacillin 2 GM in NS 0.9% 100 ml BAG 100 ML IVPB SCH ×6 (05:28→22:35)
[2023-06-16 07:36] LABS: ABS Basophils 0.1 10^3/uL (0.0-0.1); ABS Eosinophils 0.2 10^3/uL (0.0-0.5); ABS Lymphocytes 0.8 10^3/uL (1.0-4.8); ABS Monocytes 0.5 10^3/uL (0.0-0.9); ABS Neutrophils 4.6 10^3/uL (1.5-7.6); Eosinophil % 3.2 %; Hematocrit 23.5 % (35-45); Lymphocyte % 13.2 %; Mean Corpuscular Hemoglobin 31.3 pg (27-33); Mean Corpuscular Hgb Conc 33.9 g/dL (31-36); Mean Corpuscular Volume 92.3 fL (80-97); Mean Platelet Volume 10.2 fL (7.5-11.2); Platelet Count 149 10^3/uL (150-450); Red Blood Count 2.54 10^6/uL (3.63-4.92); Red Cell Distribution Width 16.6 % (12-17); White Blood Count 6.2 10^3/uL (3.8-11.8)
[2023-06-16 08:50] LABS: Calcium 7.4 mg/dL (8.6-10.3); Creatinine, Serum 3.6 mg/dL (0.51-0.95); Potassium 3.5 mmol/L (3.5-5.0); eGFR CKD-EPI 14.1 (>60)
[2023-06-16] MEDS: Heparin 1,000 UNIT/ML 10 ml (10,000 UNITS) CATHLAB/DIALYSIS DIALYSIS PRN ×4 (09:03→12:45)
[2023-06-16] MEDS: Cholecalciferol (VIT D3) 1,000 unit TAB PO SCH (15:40)
[2023-06-16] MEDS: Heparin 5000 UNITS/ML 1 mL VIAL SUBCUT SCH ×2 (15:40→21:31)
[2023-06-17] MEDS: Oxacillin 2 GM in NS 0.9% 100 ml BAG 100 ML IVPB SCH ×3 (03:45→11:54)
[2023-06-17 06:47] LABS: Hematocrit 26.5 % (35-45); Hemoglobin 8.9 g/dL (11.5-14.3); Mean Corpuscular Hgb Conc 33.6 g/dL (31-36); Mean Corpuscular Volume 92.2 fL (80-97); Mean Platelet Volume 9.9 fL (7.5-11.2); Platelet Count 175 10^3/uL (150-450); Red Blood Count 2.87 10^6/uL (3.63-4.92); Red Cell Distribution Width 16.9 % (12-17); White Blood Count 5.8 10^3/uL (3.8-11.8)
[2023-06-17 07:10] LABS: Albumin 2.8 g/dL (3.2-5.2); Albumin/Globulin Ratio 0.8 (1-3); Globulin 3.5 g/dL (2-4); Potassium 3.5 mmol/L (3.5-5.0); Total Bilirubin 1.8 mg/dL (0.2-1.0); Total Protein 6.3 g/dL (6.4-8.9); eGFR CKD-EPI 17.6 (>60)
[2023-06-17] MEDS ORDERED: Naloxone 0.4 mg VIAL 0.4 mg/ml 1 ml VIAL ONE (07:38)
[2023-06-17] MEDS ORDERED: fentaNYL 100 mcg/2 ml 50 MCG/ML VIAL ONE (07:38)
[2023-06-17] MEDS ORDERED: Midazolam 5 mg/5 ml VIAL 1 mg/ml 5 ml VIAL (5 mg) ONE (07:38)
[2023-06-17] MEDS ORDERED: Flumazenil 0.5 mg/5 ml 0.1 MG/ML 5 ml VIAL ONE (07:38)
[2023-06-17] MEDS ORDERED: Midazolam 10 mg/10 ml VIAL 1 mg/ml 10 ml VIAL (10 mg) IV SLOW PU ONE (08:17)
[2023-06-17] MEDS ORDERED: fentaNYL 100 mcg/2 ml 50 MCG/ML VIAL IV SLOW PU ONE (08:17)
[2023-06-17] MEDS: Cholecalciferol (VIT D3) 1,000 unit TAB PO SCH (10:22)
[2023-06-17] MEDS: Heparin 5000 UNITS/ML 1 mL VIAL SUBCUT SCH ×2 (10:22→20:29)
[2023-06-17] MEDS: ceFAZolin 1 GM ADVAN 1 GM in NS 0.9% 50 ML 50 ML IVPB SCH (17:33)
[2023-06-17] MEDS ORDERED: Dextrose 50% Syringe 50 ml 25 GM/50 ML SYRINGE IV PUSH PRN (18:24)
[2023-06-18 07:03] LABS: Hematocrit 25.2 % (35-45); Hemoglobin 8.5 g/dL (11.5-14.3); Mean Corpuscular Hemoglobin 31.2 pg (27-33); Mean Corpuscular Hgb Conc 33.6 g/dL (31-36); Mean Corpuscular Volume 92.8 fL (80-97); Platelet Count 177 10^3/uL (150-450); Red Blood Count 2.72 10^6/uL (3.63-4.92); Red Cell Distribution Width 16.8 % (12-17); White Blood Count 7.9 10^3/uL (3.8-11.8)
[2023-06-18 07:22] LABS: Albumin 2.8 g/dL (3.2-5.2); Albumin/Globulin Ratio 0.8 (1-3); Calcium 8.1 mg/dL (8.6-10.3); Creatinine, Serum 4.61 mg/dL (0.51-0.95); Globulin 3.5 g/dL (2-4); Potassium 3.8 mmol/L (3.5-5.0); Total Bilirubin 1.9 mg/dL (0.2-1.0); Total Protein 6.3 g/dL (6.4-8.9); eGFR CKD-EPI 10.5 (>60)
[2023-06-18] MEDS: Heparin 1,000 UNIT/ML 10 ml (10,000 UNITS) CATHLAB/DIALYSIS DIALYSIS PRN ×3 (08:17→11:24)
[2023-06-18] MEDS: Heparin 5000 UNITS/ML 1 mL VIAL SUBCUT SCH ×2 (12:14→22:38)
[2023-06-18] MEDS: Cholecalciferol (VIT D3) 1,000 unit TAB PO SCH (12:14)
[2023-06-18 13:37] LABS: Hepatitis A Ab IgM Negative (Negative)
[2023-06-18 13:50] LABS: Hepatitis C Antibody Negative (Negative)
[2023-06-18] MEDS ORDERED: Dextrose 50% Syringe 50 ml 25 GM/50 ML SYRINGE IV PUSH PRN (15:05)
[2023-06-18] MEDS: ceFAZolin 1 GM ADVAN 1 GM in NS 0.9% 50 ML 50 ML IVPB SCH (16:26)
[2023-06-18] MEDS: Calcium Polycarbophil 625mg TB PO SCH (22:37)
[2023-06-19] MEDS: Heparin 1,000 UNIT/ML 10 ml (10,000 UNITS) CATHLAB/DIALYSIS DIALYSIS PRN ×4 (06:35→10:00)
[2023-06-19] MEDS ORDERED: Clindamycin 600 MG/D5W BAG 600 MG/50 ML BAG IV ONE (11:00)
[2023-06-19] MEDS: Heparin 5000 UNITS/ML 1 mL VIAL SUBCUT SCH ×2 (11:02→20:55)
[2023-06-19] MEDS: Cholecalciferol (VIT D3) 1,000 unit TAB PO SCH (11:19)
[2023-06-19] MEDS: Calcium Polycarbophil 625mg TB PO SCH ×2 (11:20→20:53)
[2023-06-19] MEDS ORDERED: Lidocaine 1% MPF 5 ML VIAL ONE (11:45)
[2023-06-19] MEDS ORDERED: Heparin 2 UNITS/ML IVPREMIX 1,000 UNIT/500 ML BAG IV ONE ×2 (11:45→12:23)
[2023-06-19] MEDS ORDERED: Lidocaine 1% VIAL 10 MG/ML 30 ML VIAL ONE (11:45)
[2023-06-19] MEDS ORDERED: Midazolam 5 mg/5 ml VIAL 1 mg/ml 5 ml VIAL (5 mg) ONE (12:01)
[2023-06-19] MEDS ORDERED: fentaNYL 100 mcg/2 ml 50 MCG/ML VIAL ONE (12:01)
[2023-06-19] MEDS ORDERED: Heparin 5000 UNITS/ML 1 mL VIAL ONE (12:02)
[2023-06-19] MEDS ORDERED: Iohexol 350 (CONTRAST) 100 ML PAK IV ONE (12:09)
[2023-06-19] MEDS: ceFAZolin 1 GM ADVAN 1 GM in NS 0.9% 50 ML 50 ML IVPB SCH (17:05)
[2023-06-19] MEDS ORDERED: Dextrose 50% Syringe 50 ml 25 GM/50 ML SYRINGE IV PUSH PRN (18:15)
[2023-06-20] MEDS: Heparin 1,000 UNIT/ML 10 ml (10,000 UNITS) CATHLAB/DIALYSIS DIALYSIS PRN ×4 (08:35→12:20)
[2023-06-20] MEDS: Heparin 5000 UNITS/ML 1 mL VIAL SUBCUT SCH (12:43)
[2023-06-20 13:05] VITALS: BP 151/67
[2023-06-20] MEDS: Calcium Polycarbophil 625mg TB PO SCH (13:08)
[2023-06-20] MEDS: Cholecalciferol (VIT D3) 1,000 unit TAB PO SCH (13:12)
== END 2023-06-20 16:00 | disposition home or self-care (01) | DRG 466 ==
LOC: ED 11:45 → EDHOLD 11:45 → SSU 18:22 → SUATTDRO 06-13 12:27 → SSU 06-14 14:19
PROVIDERS: ADMIT Student in an Organized Health Care Education/Training Program; ATTEND Internal Medicine

== ENCOUNTER 2024-04-28 10:00 | Inpatient (IN) ==
[2024-04-28] MEDS: Ondansetron ODT 4 mg TAB 4 MG TAB SL ONE (10:21)
[2024-04-28 11:04] LABS: ABS Lymphocytes 0.2 10^3/uL (1.0-4.8); ABS Monocytes 0.4 10^3/uL (0.0-0.9); ABS Neutrophils 13.6 10^3/uL (1.5-7.6); Eosinophil % 0.3 %; Hematocrit 28.9 % (35-45); Hemoglobin 9.8 g/dL (11.5-14.3); Lymphocyte % 1.4 %; Mean Corpuscular Hemoglobin 32.9 pg (27-33); Mean Corpuscular Hgb Conc 33.9 g/dL (31-36); Mean Platelet Volume 9.6 fL (7.5-11.2); Platelet Count 131 10^3/uL (150-450); Red Blood Count 2.98 10^6/uL (3.63-4.92); Red Cell Distribution Width 14.3 % (12-17); White Blood Count 14.3 10^3/uL (3.8-11.8)
[2024-04-28 11:13] LABS: INR 1.11 (0.85-1.14)
[2024-04-28] MEDS: Piperacillin/Tazobac 3.375 BAG 3.375 GM/100 ML BAG IV ONE (11:28)
[2024-04-28] MEDS: Ondansetron 4 mg VIAL 2 MG/ML 2 ml VIAL IV ONE ×2 (11:44→18:33)
[2024-04-28] MEDS: Acetaminophen IV 1 GM/100ML 1,000 MG/100 ML BAG IV ONE (11:45)
[2024-04-28 12:06] LABS: Albumin 4.1 g/dL (3.2-5.2); Albumin/Globulin Ratio 1.4 (1-3); Calcium 8.8 mg/dL (8.6-10.3); Creatinine, Serum 7.15 mg/dL (0.51-0.95); Potassium 5.5 mmol/L (3.5-5.0); Total Bilirubin 0.7 mg/dL (0.2-1.0); Total Protein 7.1 g/dL (6.4-8.9); eGFR CKD-EPI 6.2 (>60)
[2024-04-28 12:24] LABS: High Sensitivity Troponin 1 Hr 25 pg/mL (<15)
[2024-04-28 13:23] LABS: Urine Appearance Clear; Urine Bilirubin Negative (Negative); Urine Blood 3+ (Negative); Urine Color Yellow; Urine Glucose 4+ (>=1000 mg/dL) (Negative); Urine Ketones Trace (Negative); Urine Nitrite Negative (Negative); Urine Protein 3+ (>=300 mg/dL) (Negative); Urine Specific Gravity 1.023 (1.002-1.030); Urine Urobilinogen Negative (Negative)
[2024-04-28 13:25] LABS: Urine Bacteria Absent /HPF (Absent); Urine Red Blood Cell 2+(6-10/hpf) /HPF (0-Trace); Urine Squamous Epithelial Cell Present /HPF (Absent); Urine White Blood Cell 3+(>20/hpf) /HPF (0-Trace)
[2024-04-28] MEDS: Iodixanol (CONTRAST) 320 MG/ML 100 ML SDV IV ONE (13:29)
[2024-04-28] MEDS: Vancomycin 1,250 MG in NS 0.9% 250 ml 250 ML IVPB ONE (14:14)
[2024-04-28] MEDS: Dextrose 50% Syringe 50 ml 25 GM/50 ML SYRINGE IV PUSH ONE (14:15)
[2024-04-28] MEDS: Furosemide 40 mg/4 ml IV VIAL IV SLOW PU ONE (14:27)
[2024-04-28] MEDS: Morphine 4 MG/ML VIAL (1 ml) IV ONE (17:22)
[2024-04-28 17:36] LABS: Venous Bicarbonate HCO3 25.4 mmol/L (24-28)
[2024-04-28] MEDS: Prochlorperazine 5 mg/ml 2 ml VIAL (10 mg) IV PRN (19:42)
[2024-04-28] MEDS ORDERED: Ondansetron 4 mg VIAL 2 MG/ML 2 ml VIAL IV PRN (19:46)
[2024-04-28] MEDS ORDERED: Prochlorperazine 5 mg/ml 2 ml VIAL (10 mg) IV PRN (19:46)
[2024-04-28] MEDS ORDERED: Acetaminophen IV 1 GM/100ML 1,000 MG/100 ML BAG IV PRN (19:48)
[2024-04-28] MEDS: Scopolamine 1 mg/72hr PATCH TRANSDERM SCH (21:11)
[2024-04-28] MEDS: fentaNYL 100 mcg/2 ml 50 MCG/ML VIAL IV SLOW PU ONE (23:12)
[2024-04-28] MEDS: Heparin 5000 UNITS/ML 1 mL VIAL SUBCUT SCH (23:19)
[2024-04-29] MEDS: cefTRIAXone 2 gm/50 mL D5W 2 GM/50 ML BAG IV SCH (04:07)
[2024-04-29] MEDS ORDERED: NS 0.9% 1000 ml BAG 100 ML IV PRN (07:42)
[2024-04-29] MEDS ORDERED: Albumin Human 25% 25 GM/100 ML BTL IV PRN (07:42)
[2024-04-29] MEDS ORDERED: NS 0.9% 1000 ml BAG 200 ML IV PRN (07:42)
[2024-04-29 08:08] LABS: Hematocrit 26.8 % (35-45); Hemoglobin 9.1 g/dL (11.5-14.3); Mean Corpuscular Hemoglobin 33.4 pg (27-33); Mean Corpuscular Volume 98.2 fL (80-97); Red Blood Count 2.73 10^6/uL (3.63-4.92); Red Cell Distribution Width 14.7 % (12-17); White Blood Count 7.4 10^3/uL (3.8-11.8)
[2024-04-29 08:46] LABS: Mean Platelet Volume 9.7 fL (7.5-11.2); Platelet Count 100 10^3/uL (150-450)
[2024-04-29 08:57] LABS: Creatinine, Serum 7.93 mg/dL (0.51-0.95); Potassium 6.3 mmol/L (3.5-5.0); eGFR CKD-EPI 5.4 (>60)
[2024-04-29] MEDS ORDERED: Calcium Gluconate 1 GM/10 ML VIAL (in Pyxis) IV PUSH ONE (09:05)
[2024-04-29] MEDS ORDERED: Sulfur Hexaflouride MICROSPHR 25 MG VIAL IV PRN (09:15)
[2024-04-29 09:17] LABS: Albumin 3.7 g/dL (3.2-5.2); Albumin/Globulin Ratio 1.4 (1-3); Direct Bilirubin 0.2 mg/dL (0.03-0.18); Globulin 2.7 g/dL (2-4); Indirect Bilirubin 0.4 mg/dL (0.3-1.0); Total Bilirubin 0.6 mg/dL (0.2-1.0); Total Protein 6.4 g/dL (6.4-8.9)
[2024-04-29] MEDS: CALCIUM GLUCONATE 1GM/50ML NS BAG IV ONE (09:53)
[2024-04-29] MEDS ORDERED: Dextrose 50% VIAL 50 ml IV PRN (09:55)
[2024-04-29] MEDS: Dextrose 50% Syringe 50 ml 25 GM/50 ML SYRINGE IV PUSH PRN (10:05)
[2024-04-29] MEDS: Dextrose 50% Syringe 50 ml 25 GM/50 ML SYRINGE IV PUSH ONE (10:12)
[2024-04-29 10:45] LABS: Hepatitis B Surface Antigen Nonreactive (Nonreactive)
[2024-04-29] MEDS: Heparin 1,000 UNIT/ML 10 ml (10,000 UNITS) CATHLAB/DIALYSIS DIALYSIS PRN (11:00)
[2024-04-29 11:03] LABS: Hepatitis B Surface Ab Immune (Immune)
[2024-04-29] MEDS: ceFAZolin 1 GM in Dextrose 1 GM/50 ML BAG IVPB SCH (16:50)
[2024-04-29] MEDS: Lidocaine PATCH 5% PATCH TRANSDERM SCH (18:38)
[2024-04-29] MEDS ORDERED: Dextrose 50% Syringe 50 ml 25 GM/50 ML SYRINGE IV PUSH PRN (18:38)
[2024-04-29 18:45] LABS: Calcium 9.2 mg/dL (8.6-10.3); Creatinine, Serum 4.61 mg/dL (0.51-0.95); Potassium 4.6 mmol/L (3.5-5.0); eGFR CKD-EPI 10.4 (>60)
[2024-04-29] MEDS: Insulin GLARGINE 100 un/ml 10 ml VIAL SUBCUT ONE ×2 (20:33→20:46)
[2024-04-29] MEDS: diPHENhydraMINE CREAM 2%(NF) 28 gm TUBE TOPICAL PRN (23:52)
[2024-04-30 07:46] LABS: Hematocrit 22.9 % (35-45); Hemoglobin 7.8 g/dL (11.5-14.3); Mean Corpuscular Hemoglobin 33.5 pg (27-33); Mean Corpuscular Hgb Conc 34.1 g/dL (31-36); Mean Corpuscular Volume 98.1 fL (80-97); Red Blood Count 2.34 10^6/uL (3.63-4.92); Red Cell Distribution Width 14.4 % (12-17); White Blood Count 4.8 10^3/uL (3.8-11.8)
[2024-04-30 07:58] LABS: Calcium 7.7 mg/dL (8.6-10.3); Creatinine, Serum 6.15 mg/dL (0.51-0.95); Potassium 5.2 mmol/L (3.5-5.0); eGFR CKD-EPI 7.4 (>60)
[2024-04-30 08:11] LABS: ABS Eosinophils 0.1 10^3/uL (0.0-0.5); ABS Lymphocytes 0.5 10^3/uL (1.0-4.8); ABS Monocytes 0.6 10^3/uL (0.0-0.9); ABS Neutrophils 3.6 10^3/uL (1.5-7.6); Eosinophil % 1.8 %; Lymphocyte % 11.3 %; Mean Platelet Volume 10.2 fL (7.5-11.2); Nucleated Red Blood Cells % 0.1 %/100WBC (0.0-0.8); Platelet Count 92 10^3/uL (150-450)
[2024-04-30 09:12] LABS: Albumin 3.5 g/dL (3.2-5.2); Albumin/Globulin Ratio 1.3 (1-3); Globulin 2.6 g/dL (2-4); Total Bilirubin 0.6 mg/dL (0.2-1.0); Total Protein 6.1 g/dL (6.4-8.9)
[2024-04-30] MEDS: Insulin GLARGINE 100 un/ml 10 ml VIAL SUBCUT SCH (21:40)
[2024-05-01 08:31] LABS: ABS Eosinophils 0.2 10^3/uL (0.0-0.5); ABS Lymphocytes 0.7 10^3/uL (1.0-4.8); ABS Monocytes 0.6 10^3/uL (0.0-0.9); ABS Neutrophils 3.9 10^3/uL (1.5-7.6); Eosinophil % 3.5 %; Hematocrit 25.5 % (35-45); Hemoglobin 8.6 g/dL (11.5-14.3); Lymphocyte % 12.4 %; Mean Corpuscular Hemoglobin 32.8 pg (27-33); Mean Corpuscular Hgb Conc 33.6 g/dL (31-36); Mean Corpuscular Volume 97.6 fL (80-97); Mean Platelet Volume 9.9 fL (7.5-11.2); Platelet Count 139 10^3/uL (150-450); Red Blood Count 2.61 10^6/uL (3.63-4.92); Red Cell Distribution Width 14.1 % (12-17); White Blood Count 5.5 10^3/uL (3.8-11.8)
[2024-05-01 09:06] LABS: Calcium 8.1 mg/dL (8.6-10.3); Creatinine, Serum 5.08 mg/dL (0.51-0.95); Potassium 4.8 mmol/L (3.5-5.0); eGFR CKD-EPI 9.3 (>60)
[2024-05-01] MEDS: Ondansetron ODT 4 mg TAB 4 MG TAB SL PRN (18:22)
[2024-05-02 06:20] LABS: Hematocrit 24.8 % (35-45); Hemoglobin 8.6 g/dL (11.5-14.3); Mean Corpuscular Hemoglobin 33.6 pg (27-33); Mean Corpuscular Hgb Conc 34.5 g/dL (31-36); Mean Corpuscular Volume 97.2 fL (80-97); Mean Platelet Volume 10.4 fL (7.5-11.2); Platelet Count 145 10^3/uL (150-450); Red Blood Count 2.55 10^6/uL (3.63-4.92); Red Cell Distribution Width 13.9 % (12-17)
[2024-05-02 06:37] LABS: Albumin 3.3 g/dL (3.2-5.2); Albumin/Globulin Ratio 1.3 (1-3); Creatinine, Serum 6.28 mg/dL (0.51-0.95); Globulin 2.6 g/dL (2-4); Potassium 5.7 mmol/L (3.5-5.0); Total Bilirubin 0.4 mg/dL (0.2-1.0); Total Protein 5.9 g/dL (6.4-8.9); eGFR CKD-EPI 7.2 (>60)
[2024-05-02 07:16] LABS: ABS Basophils 0.1 10^3/uL (0.0-0.1); ABS Eosinophils 0.3 10^3/uL (0.0-0.5); ABS Lymphocytes 0.9 10^3/uL (1.0-4.8); ABS Monocytes 0.6 10^3/uL (0.0-0.9); ABS Neutrophils 4.1 10^3/uL (1.5-7.6); Eosinophil % 4.8 %; Lymphocyte % 15.2 %
[2024-05-02] MEDS: SODIUM ZIRCONIUM CYCLOSILICATE 10 GM PACKET PO ONE (13:02)
[2024-05-02] MEDS: Scopolamine 1 mg/72hr PATCH TRANSDERM ONE (19:15)
[2024-05-03 06:15] LABS: Hemoglobin 8.5 g/dL (11.5-14.3); Mean Corpuscular Hemoglobin 33.5 pg (27-33); Mean Corpuscular Hgb Conc 34.1 g/dL (31-36); Mean Corpuscular Volume 98.3 fL (80-97); Mean Platelet Volume 9.9 fL (7.5-11.2); Platelet Count 158 10^3/uL (150-450); Red Blood Count 2.54 10^6/uL (3.63-4.92); Red Cell Distribution Width 14.2 % (12-17); White Blood Count 6.6 10^3/uL (3.8-11.8)
[2024-05-03 06:53] LABS: Calcium 8.1 mg/dL (8.6-10.3); Creatinine, Serum 7.31 mg/dL (0.51-0.95); Magnesium 2.7 mg/dL (1.9-2.7); Potassium 6.7 mmol/L (3.5-5.0)
[2024-05-03] MEDS ORDERED: Calcium Gluconate 1 GM/10 ML VIAL (in Pyxis) IV PUSH ONE (07:21)
[2024-05-03] MEDS ORDERED: CALCIUM GLUCONATE 1GM/50ML NS BAG IV ONE (07:21)
[2024-05-03] MEDS: Dextrose 50% Syringe 50 ml 25 GM/50 ML SYRINGE IV PUSH ONE ×2 (08:02→19:44)
[2024-05-03] MEDS: CALCIUM GLUCONATE 1GM/50ML NS BAG IV ONE (13:45)
[2024-05-03 15:01] LABS: Calcium 8.7 mg/dL (8.6-10.3); Creatinine, Serum 3.7 mg/dL (0.51-0.95); Potassium 4.3 mmol/L (3.5-5.0); eGFR CKD-EPI 13.6 (>60)
[2024-05-04 06:33] LABS: ABS Eosinophils 0.2 10^3/uL (0.0-0.5); ABS Lymphocytes 0.8 10^3/uL (1.0-4.8); ABS Monocytes 0.6 10^3/uL (0.0-0.9); ABS Neutrophils 4.4 10^3/uL (1.5-7.6); Eosinophil % 3.7 %; Hemoglobin 8.2 g/dL (11.5-14.3); Lymphocyte % 12.8 %; Mean Corpuscular Hemoglobin 33.5 pg (27-33); Mean Corpuscular Hgb Conc 34.1 g/dL (31-36); Mean Corpuscular Volume 98.4 fL (80-97); Mean Platelet Volume 9.7 fL (7.5-11.2); Nucleated Red Blood Cells % 0.1 %/100WBC (0.0-0.8); Platelet Count 164 10^3/uL (150-450); Red Blood Count 2.44 10^6/uL (3.63-4.92); Red Cell Distribution Width 14.1 % (12-17); White Blood Count 6.1 10^3/uL (3.8-11.8)
[2024-05-04 06:52] LABS: Calcium 8.1 mg/dL (8.6-10.3); Creatinine, Serum 5.18 mg/dL (0.51-0.95); Potassium 5.4 mmol/L (3.5-5.0); eGFR CKD-EPI 9.1 (>60)
[2024-05-04] MEDS: SODIUM ZIRCONIUM CYCLOSILICATE 5 GM PACKET PO SCH (12:58)
[2024-05-04 15:00] VITALS: BP 155/84
== END 2024-05-04 15:38 | disposition home or self-care (01) | DRG 720 ==
LOC: EDHOLD 10:00 → ED 10:00 → INTOOBSV 18:00 → OBSVTOIN 18:00 → SUATTDRO 18:00 → MEDTELE 23:34 → AA 23:55 → MEDTELE 23:55 → UNDODISIN 05-04 15:38
PROVIDERS: ADMIT Internal Medicine; ATTEND Internal Medicine